=== PATIENT | male | born 1985 | race African-American/Black ===

== ENCOUNTER 2018-06-02 11:23 | Emergency (ER) | payer SELFPAY ==
[~2018-06-02] VITALS: Ht 162.6 cm; Wt 95.3 kg
[2018-06-02] MEDS ORDERED: PANTOPRAZOLE 40 MG 10ML VIAL IV STA (11:50)
[2018-06-02] MEDS ORDERED: SODIUM CHLORIDE 0.9% 1000ML 1,000 ML IV SCH (12:00)
[2018-06-02] MEDS ORDERED: FAMOTIDINE 20 MG/2 ML VIAL IV ONE (12:30)
[2018-06-02] MEDS ORDERED: DONNATAL/LIDOCAINE/MAALOX 30 ML SUSP PO SCH (15:00)
== END 2018-06-02 13:28 | disposition home or self-care (01) ==
LOC: FSED 11:23
DX: R10.13 Epigastric pain (principal); K29.00 Acute gastritis without bleeding
CPT/HCPCS: 36415; 80053; 80076; 81003; 83690; 85025; 99284

== ENCOUNTER 2019-01-27 10:26 | Emergency (ER) | payer SELFPAY ==
[~2019-01-27] VITALS: Ht 162.6 cm; Wt 83.9 kg
--- OUTSIDE RECORDS SUMMARY | 2019-01-27 10:29 | XMS REPORT | Clinical Summary ---
Author Author [facility] Organization [facility] Address Unknown Phone Unavailable Care Team Providers Care Special Procedure Tech Name Role Phone Jordan Dasilva MD PCP Allergies Comments Active Allergy Reactions Severity Noted Date sob Hydroxyzine 10/12/2017 Medications End Date Status Medication Sig Dispensed Refills Start Date Active traMADol (ULTRAM) 50 mg Take 1 tablet 30 tablet 0 tabletIndications: Side by mouth 9 pain every 6 hours as needed for Pain. Active dexlansoprazole Take 1 90 capsule 0 (DEXILANT) 30 mg delayed capsule by 9 release mouth daily. 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 complication status, Osteoarthritis of thoracic spine, unspecified spinal osteoarthritis complication status Active baclofen (LIORESAL) 10 mg Take 1 tablet 60 tablet 1 tabletIndications: Spasm by mouth 2 9 of muscle times daily. Active hyoscyamine sulfate Take 1 tablet 60 tablet 0 (LEVSIN) 0.125 mg by mouth 9 tabletIndications: every 6 hours Chronic abdominal pain as needed for Cramping. 10/12/2018 Discontinued esomeprazole (NEXIUM) 20 Take 1 30 capsule 1 mg delayed release capsule by 7 capsuleIndications: mouth every Gastritis without morning bleeding, unspecified (before chronicity, unspecified breakfast). gastritis type 12/23/2018 Discontinued dicyclomine (BENTYL) 10 Take 1 30 capsule 1 mg capsuleIndications: capsule by 7 Gastritis without mouth 3 times bleeding, unspecified daily as chronicity, unspecified needed for gastritis type Pain. 12/23/2018 Discontinued baclofen (LIORESAL) 10 mg Take 1 tablet 60 tablet 1 tabletIndications: Spasm by mouth 2 8 of muscle times daily. 11/28/2018 Discontinued amitriptyline (ELAVIL) 25 Take 1 tablet 90 tablet 0 mg tabletIndications: by mouth at 8 Osteoarthritis of lumbar bedtime spine, unspecified spinal nightly. osteoarthritis complication status, Osteoarthritis of thoracic spine, unspecified spinal osteoarthritis complication status 11/28/2018 Discontinued omeprazole (PRILOSEC) 20 Take 1 30 capsule 0 mg delayed release capsule by 8 capsuleIndications: mouth daily. Epigastric pain 12/01/2018 ciprofloxacin HCl (CIPRO) Take 1 tablet 20 tablet 0 500 mg tabletIndications: by mouth 2 9 Side pain times daily for 10 days. 12/01/2018 magnesium hydroxide (MILK Take 15 mL by 360 mL 0 OF MAGNESIA) 400 mg/5 mL mouth daily 9 oral as needed for suspensionIndications: up to 10 days Constipation, unspecified for constipation type Constipation. 12/23/2018 Discontinued amitriptyline (ELAVIL) 25 Take 1 tablet 90 tablet 1 mg tabletIndications: by mouth at 9 Osteoarthritis of lumbar bedtime spine, unspecified spinal nightly. osteoarthritis complication status, Osteoarthritis of thoracic spine, unspecified spinal osteoarthritis complication status 12/23/2018 Discontinued dicyclomine (BENTYL) 10 Take 1 30 capsule 1 mg capsuleIndications: capsule by 9 Gastritis without mouth 3 times bleeding, unspecified daily as chronicity, unspecified needed for gastritis type Pain. 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 Decreased vision 07/21/2015 Dental infection 04/16/2015 Dental caries extending into pulp 04/16/2015 Alcohol abuse, in remission 01/28/2015 Depression 01/28/2015 ANDREW (generalized anxiety disorder) 01/28/2015 Body mass index (BMI) of 30.0-30.9 in adult 12/04/2014 Abdominal pain, epigastric 12/04/2014 Pancreatitis 06/12/2014 Overview: [facility] RUQ abdominal pain Encounters Care Team Description Date Type Specialty Jordan Dasilva MD Chronic abdominal pain (Primary Dx); Osteoarthritis of lumbar spine, unspecified spinal osteoarthritis complication status; Osteoarthritis of thoracic spine, unspecified spinal osteoarthritis complication status; Gastritis without bleeding, unspecified chronicity, unspecified gastritis type; Spasm of muscle 12/23/2018 Office Visit Family Practice 12/23/2018 Travel Jordan Dasilva MD Chronic abdominal pain (Primary Dx); Osteoarthritis of lumbar spine, unspecified spinal osteoarthritis complication status; Osteoarthritis of thoracic spine, unspecified spinal osteoarthritis complication status 11/28/2018 Office Visit Family Practice Koki Renteria MD Telufusi, Abimbola R PA Side pain (Primary Dx); Constipation, unspecified constipation type 11/21/2018 Same Day Family Practice 11/21/2018 Travel 11/20/2018 Travel Jelly Soto RN 11/20/2018 Nurse Triage Nova Murphy MD Patient left without being seen (Primary Dx) 10/31/2018 Same Day Family Practice 10/31/2018 Travel Yancy Saul MD RUQ abdominal pain (Primary Dx); Epigastric pain 10/12/2018 Emergency Emergency Medicine after 01/26/2018 Immunizations Name Dates Previously Given Next Due Influenza Vaccine 09/07/2015, 12/04/2014 Influenza Vaccine, 11/21/2018 (Deferred: Patient Refused) Seasonal, Injectable Family History Medical History Relation Name Comments Arthritis Maternal Grandmother Heart Maternal Grandmother Hypertension Maternal Grandmother Relation Name Status Comments Daughter Alive x2 Father Alive Maternal Grandfather Maternal Grandmother Alive Mother Alive Paternal Grandfather Alive Paternal Grandmother Alive Son Alive x4 Social History Date Tobacco Use Types Packs/Day Years Used Quit: 12/29/2014 Former Smoker Cigarettes 0.3 15 Smokeless Tobacco: Former User Tobacco Cessation: Counseling Given: Yes Alcohol Use Drinks/Week oz/Week Comments No quit drinking Sex Assigned at Date Recorded Not on file Industry Job Start Date Occupation Not on file Not on file Not on file Travel End Travel History Travel Start No recent travel history available. Last Filed Vital Signs Time Taken Vital Sign Reading 12/23/2018 1:43 PM [employer] Blood Pressure 126/91 12/23/2018 1:43 PM [employer] Pulse 65 12/23/2018 1:43 PM [employer] Temperature 36.8 C (98.3 F) 12/23/2018 1:43 PM [employer] Respiratory Rate 18 11/21/2018 2:25 PM [employer] Oxygen Saturation 99% - Inhaled Oxygen - Concentration 12/23/2018 1:43 PM [employer] Weight 83.9 kg (185 lb) 12/23/2018 1:43 PM [employer] Height 162.6 cm (5' 4") 12/23/2018 1:43 PM [employer] Body Mass Index 31.76 Plan of Treatment Care Team Description Date Type Specialty ShalomPilo, OD [address] [place] [address] [phone] exam 03/05/2019 Office Visit Ophthalmology Jordan Dasilva MD [place], [place] [id number] pt needs meds 03/19/2019 Office Visit Family Practice Procedures Comments Procedure Name Priority Date/Time Associated Diagnosis NEEDLE EMG, 2 EXTREMITIES Routine 11/28/2018 Osteoarthritis of lumbar 2:39 PM [employer] spine, unspecified spinal osteoarthritis complication status N EMG; THORACIC MUSCLES Routine 11/28/2018 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 [employer] thoracic spine, unspecified spinal osteoarthritis complication status POC URINE DIPSTICK, Routine 11/21/2018 Side pain WITHOUT MICRO U/S ABDOMEN LIMITED STAT 10/12/2018 RUQ abdominal pain 8:36 PM [employer] BMP POC Routine 10/12/2018 9:19 AM [employer]OMER [employer] TRA[employer]ER HIV-1/HIV-2 ROUTINE STAT 10/12/2018 SCREENING 9:08 AM [employer]OMER [employer]ICE TRA[employer]ER UA CHEMISTRIES STAT 10/12/2018 9:08 AM [employer]ER [employer]ICE TRA[employer]ER LIPASE STAT 10/12/2018 9:08 AM C[employer]OMER SERVICE TRAINER LIVER PROFILE STAT 10/12/2018 9:08 AM C[employer]OMER [employer]ICE TRA[employer]ER CBC/DIFF STAT 10/12/2018 9:08 AM CUSTOMER SERVICE TRAINER after 01/26/2018 Results * POC URINE DIPSTICK, WITHOUT MICRO (11/21/2018) Color POC dark yellow - - - Clarity POC clr - - - Spec Nikolski <=1.005 1.005 - 1.030 POC pH POC 6.0 5.0 - 7.0 Protein POC Neg Neg - Neg Glucose POC Neg Neg - Neg Ketone POC Neg Neg - Neg Bilirubin POC Neg Neg - Neg Nitrate POC Neg Neg - Neg Urobilinogen 0.2 0.2 - 1.0 EU/dL POC Leukocyte POC Neg Neg - Neg Blood POC 1+ Neg - Neg Specimen Urine * U/S ABDOMEN LIMITED (10/12/2018 8:36 PM CUSTOMER SERVICE TRAINER) Impressions Performed At IMPRESSION: [facility] Normal right upper quadrant ultrasound. If the report is "FINALIZED" it indicates that the attending/staff radiologist has reviewed the images and agrees with the resident's interpretation. Dictated By: Isma Sosa MD, 10/12/2018 8:58 PM I have reviewed the study and agree with the findings in this report. Signed By: Birgit Lewis MD, 10/13/2018 12:31 AM Narrative Performed At EXAM: Right Upper Quadrant Ultrasound [facility] INDICATION: ruq abd pain COMPARISON: MRI abdomen 07/23/2015, CT abdomen and pelvis 01/15/2015 TECHNIQUE: Transverse and longitudinal images of the right upper abdomen were obtained. FINDINGS: Liver: Size: 14.3 cm in the right midclavicular line, normal Appearance: Normal echogenicity, smooth contour Mass: No focal masses Gallbladder: Stones/Sludge: None Wall: 0.2 cm Appearance: No pericholecystic fluid or hydrops. Sonographic Vasquez's Sign: Negative Bile Ducts: Intrahepatic Ducts: No dilatation Extrahepatic Ducts: Common bile duct measures 0.6 cm, no dilatation Pancreas: Incompletely visualized due to overlying bowel gas, but no abnormality identified involving the visualized portions of the pancreas. Right Kidney: Size: 11.5 cm Echogenicity: Normal Parenchymal thickness: Normal Collecting system: No hydronephrosis Stones: None Cyst/Mass: None Vessels: Aorta: Visualized portions are normal Inferior Vena Cava: Visualized portions are normal Main Portal Vein: 1.1 cm, normal size with hepatopetal flow. Free Fluid: No ascites or pleural effusion Procedure Note Interface, Rad/Mammog In - 10/13/2018 12:36 AM C[employer]OMER [employer]ICE TRAINER EXAM: Right Upper Quadrant Ultrasound INDICATION: ruq abd pain COMPARISON: MRI abdomen 07/23/2015, CT abdomen and pelvis 01/15/2015 TECHNIQUE: Transverse and longitudinal images of the right upper abdomen were obtained. FINDINGS: Liver: Size: 14.3 cm in the right midclavicular line, normal Appearance: Normal echogenicity, smooth contour Mass: No focal masses Gallbladder: Stones/Sludge: None Wall: 0.2 cm Appearance: No pericholecystic fluid or hydrops. Sonographic Vasquez's Sign: Negative Bile Ducts: Intrahepatic Ducts: No dilatation Extrahepatic Ducts: Common bile duct measures 0.6 cm, no dilatation Pancreas: Incompletely visualized due to overlying bowel gas, but no abnormality identified involving the visualized portions of the pancreas. Right Kidney: Size: 11.5 cm Echogenicity: Normal Parenchymal thickness: Normal Collecting system: No hydronephrosis Stones: None Cyst/Mass: None Vessels: Aorta: Visualized portions are normal Inferior Vena Cava: Visualized portions are normal Main Portal Vein: 1.1 cm, normal size with hepatopetal flow. Free Fluid: No ascites or pleural effusion IMPRESSION IMPRESSION: Normal right upper quadrant ultrasound. If the report is "FINALIZED" it indicates that the attending/staff radiologist has reviewed the images and agrees with the resident's interpretation. Dictated By: Isma Sosa MD, 10/12/2018 8:58 PM I have reviewed the study and agree with the findings in this report. Signed By: Birgit Lewis MD, 10/13/2018 12:31 AM Performing Organization Address City/State/Zipcode Phone Number SMS * BMP POC (10/12/2018 9:19 AM CUSTOMER SERVICE TRAINER) CO2 POC 26 21 - 32 mmol/L [facility] Chloride POC 103 98 - 107 mmol/L [facility] Potassium POC 3.8 3.50 - 5.10 mmol/L [facility] 1 Sodium POC 141 136 - 145 mmol/L [facility] 1 Glucose POC 117 (H) 74 - 106 mg/dL [facility] Urea Nitrogen 14 7 - 18 mg/dL [facility] POC 1 Creatinine POC 0.8 0.6 - 1.3 mg/dL [facility] 1 Calcium Ionized 1.22 1.15 - 1.29 mmol/L [facility] POC 1 Hemoglobin POC 15.6 14.0 - 18.0 g/dL [facility] 1 Hematocrit POC 46.0 40.0 - 54.0 % [facility] 1 GFR, Estimated >60 mL/min/1.73 m2 [facility] 1 GFR, Estim, >60 mL/min/1.73 m2 [facility] Afr-Am 1 Performing Organization Address [facility] Phone Number MISYS [facility] * HIV-1/HIV-2 ROUTINE SCREENING (10/12/2018 9:08 AM CUSTOMER SERVICE TRAINER) HIV-1/HIV-2 Negative NEG BT OUTPATIENT DRAW 2 Performing Organization Address [facility] Phone Number MISYS BT OUTPATIENT DRAW 2 * UA CHEMISTRIES (10/12/2018 9:08 AM CUSTOMER SERVICE TRAINER) Color Yellow [facility] 3 Clarity Clear [facility] 3 Spec Nikolski 1.026 1.001 - 1.035 [facility] 3 pH 7.0 5 - 8 [facility] 3 Protein 1+ (A) NEG [facility] 3 Glucose Negative NEG [facility] 3 Ketone Negative NEG [facility] 3 Bilirubin Negative NEG [facility] 3 Nitrate Negative NEG [facility] 3 Urobilinogen <1.0 0.2 - 1.0 EU/dL [facility] 3 Leukocyte Negative NEG [facility] 3 Blood Negative NEG [facility] 3 RBC 2 0 - 4 /HPF [facility] 3 WBC 1 0 - 5 /HPF [facility] 3 Epithelial Cell 1 /HPF [facility] 3 Specimen Urine Performing Organization Address [facility] Phone Number MISYS [facility] 3 * LIVER PROFILE (10/12/2018 9:08 AM CUSTOMER SERVICE TRAINER) T Protein 6.9 6.0 - 8.3 g/dL [facility] 1 Albumin 4.4 4.2 - 5.5 g/dL [facility] 1 T Bilirubin 1.1 0.2 - 1.2 mg/dL [facility] 1 Alk Phos 59 34 - 104 U/L [facility] 1 AST 12 (L) 13 - 39 U/L [facility] 1 ALT 12 7 - 52 U/L [facility] 1 D Bilirubin 0.2 0.0 - 0.2 mg/dL [facility] 1 Specimen Blood Performing Organization Address [facility]/State/Zipcode Phone Number MISYS [facility] 1 * LIPASE (10/12/2018 9:08 AM CUSTOMER SERVICE TRAINER) Lipase 11 11 - 82 U/L [facility] 1 Specimen Blood Performing Organization Address City/State/Zipcode Phone Number MISYS [facility] 1 * CBC/DIFF (10/12/2018 9:08 AM CUSTOMER SERVICE TRAINER) WBC 4.4 (L) 4.5 - 12.0 K/uL [facility] 2 RBC 5.25 4.60 - 6.20 M/uL [facility] 2 Hemoglobin 13.6 (L) 14.0 - 18.0 g/dL [facility] 2 Hematocrit 42.1 40.0 - 54.0 % [facility] 2 MCV 80 (L) 82 - 92 fL [facility] 2 MCH 25.9 (L) 27.0 - 31.0 pg [facility] 2 MCHC 32.3 32.0 - 36.0 g/dL [facility] 2 RDW 39.2 35.1 - 43.9 fL [facility] 2 Platelet 207 150 - 400 K/uL [facility] 2 Mean Platelet 12.1 9.4 - 12.4 fL [facility] Volume 2 Percent NRBC 0.0 [facility] 2 Absolute NRBC 0.00 [facility] 2 Neutrophil 58.3 34.0 - 67.9 % [facility] 2 Lymphocyte 35.1 21.8 - 50.0 % [facility] 2 Monocyte 5.2 (L) 5.3 - 12.0 % [facility] 2 Eosinophil 0.9 0.8 - 5.0 % [facility] 2 Basophil 0.5 0.2 - 1.2 % [facility] 2 Pct Immat Gran 0.0 0.0 - 0.5 BT [facility] 2 Neutrophil, Abs 2.57 1.78 - 5.36 K/uL [facility] 2 Lymphocyte, Abs 1.55 1.32 - 3.57 K/uL BT [facility] 2 Monocyte, Abs 0.23 (L) 0.30 - 0.82 K/uL BT [facility] 2 Eosinophil, Abs 0.04 0.04 - 0.54 K/uL [facility] 2 Basophil, Abs 0.02 0.01 - 0.08 K/uL BT [facility] 2 Absol Immat 0.00 0.00 - 0.03 K/uL [facility] Gran 2 Specimen Blood Performing Organization Address City/State/Zipcode Phone Number JFYS [facility] 2 after 01/26/2018 Insurance Type Payer Benefit Subscriber ID Effective Phone Address Plan / Dates Group [employer] PLAN H[employer] PLAN xxxxxx 2018- [phone] [id number] [place] [address] [place] [employer] [employer] 2018 [address] [facility] - [id number] PLANNING [address] [place] [phone]
--- OUTSIDE RECORDS SUMMARY | 2019-01-27 10:29 | XMS REPORT ---
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 Allergies, Adverse Reactions, Alerts Allergy Name Allergy Type Status Severity Reaction(s) Onset Date Inactive Date Treating Clinician Comments No Known Allergies DA Active U 2019-01-07 00:00:00 No Known Allergies DA Active U 2018-09-07 00:00:00 No Known Allergies DA Active U 2018-07-11 00:00:00 Medications This patient has no known medications. Encounters Start Date/Time End Date/Time Encounter Type Admission Type Attending Clinicians Care Facility Care Department Encounter ID 2019-03-19 00:00:00 2019-03-19 00:00:00 Outpatient [facility] [id number] 2019-03-05 00:00:00 2019-03-05 00:00:00 Outpatient [facility] [id number] 2019-01-23 00:00:00 2019-01-23 00:00:00 Outpatient [facility] [id number] 2019-01-17 00:00:00 2019-01-17 00:00:00 Outpatient [facility] [id number] 2018-12-23 13:42:53 2018-12-23 13:42:53 Outpatient [facility] [id number] 2018-11-28 13:47:56 2018-11-28 13:47:56 Outpatient [facility] [id number] 2018-11-21 14:22:50 2018-11-21 14:22:50 Outpatient [facility] [id number] 2018-10-31 14:07:18 2018-10-31 14:07:18 Outpatient [facility] [id number] 2018-10-12 19:58:57 2018-10-12 19:58:57 Emergency [facility] [id number] 2018-10-12 15:43:59 2018-10-12 15:43:59 Emergency [facility] [id number] 2018-01-23 11:08:58 2018-01-23 11:08:58 Outpatient [facility] [id number] 2017-11-29 00:00:00 2017-11-29 00:00:00 Outpatient [facility] [id number] 2017-10-23 00:00:00 2017-10-23 00:00:00 Outpatient [facility] [id number] 2017-10-12 16:04:26 2017-10-12 16:04:26 Outpatient [facility] [id number] 2017-10-12 10:13:00 2017-10-12 10:13:00 Outpatient [facility] [id number] 2017-05-24 13:18:49 2017-05-24 13:18:49 Outpatient [facility] [id number] Results Test Description Test Time Test Comments Text Results Atomic Results Result Comments COMPREHENSIVE METABOLIC PANEL 2019-01-07 16:46:00 SODIUM (test code=NA) 140 mmol/L 134-147 POTASSIUM (test code=K) 3.9 mmol/L 3.4-5.0 CHLORIDE (test code=CL) 104 mmol/L 100-108 CARBON DIOXIDE (test code=CO2) 28 mmol/L 21-32 ANION GAP (test code=GAP) 8.0 GAP calc 4.0-15.0 GLUCOSE (test code=GLU) 84 MG/DL 70-110 BLOOD UREA NITROGEN (test code=BUN) 16 MG/DL 7-18 GLOMERULAR FILTRATION RATE (test code=GFR) >=60 max estimate estGFR >60 CREATININE (test code=CREAT) 0.8 MG/DL 0.8-1.3 TOTAL PROTEIN (test code=PROT) 7.3 G/DL 6.4-8.2 ALBUMIN (test code=ALB) 3.8 G/DL 3.4-5.0 GLOBULIN (test code=GLOB) 3.5 GM/dL ALBUMIN/GLOBULIN RATIO (test code=A/G) 1.1 RATIO 1.2-2.2 CALCIUM (test code=CA) 9.3 MG/DL 8.5-10.1 BILIRUBIN TOTAL (test code=BILT) 0.80 MG/DL 0.2-1.2 SGOT/AST (test code=AST) 16 Unit/L 15-37 SGPT/ALT (test code=ALT) 16 Unit/L 12-78 ALKALINE PHOSPHATASE TOTAL (test code=ALKP) 69 Unit/L 50-136 [id number] 16:46:00* Test Item Value Reference Range Comments LIPASE (test code=LIP) 156 Unit/L 114-286 COMPREHENSIVE METABOLIC [id number] 16:41:00* Test Item Value Reference Range Comments SODIUM (test code=NA) 140 mmol/L 134-147 POTASSIUM (test code=K) 3.9 mmol/L 3.4-5.0 CHLORIDE (test code=CL) 104 mmol/L 100-108 CARBON DIOXIDE (test code=CO2) 28 mmol/L 21-32 ANION GAP (test code=GAP) 8.0 GAP calc 4.0-15.0 GLUCOSE (test code=GLU) 84 MG/DL 70-110 BLOOD UREA NITROGEN (test code=BUN) 16 MG/DL 7-18 GLOMERULAR FILTRATION RATE (test code=GFR) estGFR >60 CREATININE (test code=CREAT) MG/DL 0.8-1.3 TOTAL PROTEIN (test code=PROT) G/DL 6.4-8.2 ALBUMIN (test code=ALB) G/DL 3.4-5.0 GLOBULIN (test code=GLOB) GM/dL ALBUMIN/GLOBULIN RATIO (test code=A/G) RATIO 1.2-2.2 CALCIUM (test code=CA) 9.3 MG/DL 8.5-10.1 BILIRUBIN TOTAL (test code=BILT) MG/DL 0.2-1.2 SGOT/AST (test code=AST) Unit/L 15-37 SGPT/ALT (test code=ALT) Unit/L 12-78 ALKALINE PHOSPHATASE TOTAL (test code=ALKP) Unit/L 50-136 [id number] 16:41:00* Test Item Value Reference Range Comments LIPASE (test code=LIP) 156 Unit/L 114-286 CBC W/AUTO [id number] 16:31:00* Test Item Value Reference Range Comments WHITE BLOOD CELL (test code=WBC) 6.0 K/mm3 3.5-11.0 RED BLOOD CELL (test code=RBC) 5.07 M/mm3 4.70-6.10 HEMOGLOBIN (test code=HGB) 13.4 G/DL 12.3-15.9 HEMATOCRIT (test code=HCT) 40.8 % 35.8-46.7 MEAN CELL VOLUME (test code=MCV) 80.5 Fl 86.3-98.9 MEAN CELL HGB (test code=MCH) 26.4 pg 28.9-34.4 MEAN CELL HGB CONCETRATION (test code=MCHC) 32.8 G/DL 32.1-34.5 RED CELL DISTRIBUTION WIDTH (test code=RDW) 13.8 SD 11.5-14.5 PLATELET COUNT (test code=PLT) 206.0 K/mm3 150-450 MEAN PLATELET VOLUME (test code=MPV) 10.90 fL 7.0-9.6 NEUTROPHIL % (test code=NT%) 62.5 % 40-76 LYMPHOCYTE % (test code=LY%) 31.2 % 20.5-51.1 MONOCYTE % (test code=MO%) 5.3 % 1.7-9.3 EOSINOPHIL % (test code=EO%) 0.8 % 0.0-6.0 BASOPHIL % (test code=BA%) 0.2 % 0.0-2.0 NEUTROPHIL # (test code=NT#) 3.77 K/mm3 1.8-7.6 LYMPHOCYTE # (test code=LY#) 1.9 K/mm3 0.6-3.0 MONOCYTE # (test code=MO#) 0.3 K/mm3 0.2-1.5 EOSINOPHIL # (test code=EO#) 0.1 K/mm3 0.0-0.4 BASOPHIL # (test code=BA#) 0.0 K/mm3 0.0-0.2 MANUAL DIFF REQUIRED (test code=MDIFF) NO DIFF/SCN CRITERIA URINALYSIS [id number] 13:47:00* Test Item Value Reference Range Comments UA COLOR (test code=COLU) YELLOW discript YEL/STRAW UA APPEARANCE (test code=APPU) CLEAR discript CLEAR UA GLUCOSE DIPSTICK (test code=DGLUU) NEGATIVE mg/dL NEG UA BILIRUBIN DIPSTICK (test code=BILU) NEGATIVE mg/dL NEG UA KETONE DIPSTICK (test code=KETU) NEGATIVE mg/dL NEG UA SPECIFIC GRAVITY (test code=SGU) 1.015 SG 1.005-1.030 UA BLOOD DIPSTICK (test code=KELLY) TRACE mg/DL NEG UA PH DIPSTICK (test code=VINNIE) 6.0 pH UNITS 5.0-7.0 UA PROTEIN DIPSTICK (test code=PROU) NEGATIVE mg/dL NEG UA UROBILINIOGEN DIPSTICK (test code=URO) 0.2 mg/dL <2.0 UA NITRITE DIPSTICK (test code=JONELLE) NEGATIVE SCREEN NEG UA LEUKOCYTE ESTERASE DIPSTICK (test code=LEUU) NEGATIVE Leuk/mcL NEGATIVE UA WBC (test code=WBCU) 0-1 #WBC/HPF 0-3 UA RBC (test code=RBCU) 1-3 #RBC/HPF 0-3 UA SQUAMOUS CELLS (test code=SQU) 1+ /HPF NONE UA MUCUS (test code=MUCU) TRACE /LPF NONE SEEN DRUGS OF ABUSE SCREEN [id number] 13:47:00* Test Item Value Reference Range Comments URN COCAINE (test code=COCAURN) NEGATIVE SCcutoff <300 NG/ML URN CANNABINOIDS (test code=CANNABURN) NEGATIVE SCcutoff <50 NG/ML URN AMPHETAMINE (test code=AMPHETURN) NEGATIVE SCcutoff <1000 NG/ML URN BARBITURATE (test code=BARBITURN) NEGATIVE SCcutoff <200 NG/ML URN BENZODIAZEPINE (test code=BENZOURN) NEGATIVE SCcutoff <200 NG/ML URN OPIATES (test code=OPIATURN) NEGATIVE SCcutoff <2000 NG/ML URN PHENCYCLIDINE (PCP) (test code=PHENCURN) NEGATIVE SCcutoff <25 NG/ML URN METHADONE (test code=METHAURN) NEGATIVE SCcutoff <300 NG/ML - XR CHEST 1 [id number] 13:36:00 Name: BRAD RODRIGUEZ [place] : 1985 Age/S: 33 / M [id number] Unit #: [id number] Loc: [place] [address] Phys: Everardo Thurman MD Acct: [id number] Dis Date: Status: REG ER PHONE #: [phone] Exam Date: 12/20/2018 1245 FAX #: Reason: chest pain EXAMS: CPT: [id number] XR CHEST 1 V 21540 Fluoro Time: DAP (Gy m2): Air Kerma (mGy): EXAM: - XR CHEST 1 V LOCATION: C3 HISTORY: chest pain COMPARISON: 07/11/2018 FINDINGS: Single view of the chest. No indwelling lines or tubes. No pneumothorax. The lungs are clear. No pleural effusions are present. The mediastinal contours are unremarkable. No acute osseous findings are present. IMPRESSION: No acute cardiopulmonary abnormality. at 1336 Reported and signed by: BAKARI GILLILAND M.D. CC: Everardo Thurman MD PAGE 1 Signed Report Name: BRAD RODRIGUEZ : 1985 Age/S: 33 / M [id number] Unit #: [id number] Loc: [place] [address] Phys: Everardo Thurman MD Acct: [id number] Dis Date: Status: REG ER PHONE #: [phone] Exam Date: 12/20/2018 1245 FAX #: Reason: chest pain EXAMS: CPT: [id number] XR CHEST 1 V 32690 Fluoro Time: DAP (Gy m2): Air Kerma (mGy): <Continued> Technologist: Sheryl Peraza, RT(R) Trnscb Date/Time: 12/20/2018 (4248) [email or web address] Orig Print D/T: S: 12/20/2018 (9476) PAGE 2 Signed Report TROPONIN I [id number] 13:35:00* Test Item Value Reference Range Comments TROPONIN I RAPID (test code=TROPIRAP) 0.00 ng/mL 0.00-0.08 - The use of serial sampling and testing protocol is a recommended practice- An elevated troponin level alone is often not sufficient for diagnosis of myocardial infarction. CHEMISTRY 8 [id number] 13:35:00* Test Item Value Reference Range Comments ISTAT-SODIUM (test code=NAP) mmol/L 135-146 ISTAT-POTASSIUM (test code=KP) mmol/L 3.5-4.9 ISTAT-CHLORIDE (test code=CLP) mmol/L 98-109 ISTAT-CARBON DIOXIDE (test code=ISTAT-CO2) mmol/L 24-29 ISTAT CALCIUM IONIZED (test code=ISTAT-VAISHALI) mmol/L 1.12-1.32 ISTAT-GLUCOSE (test code=GLUP) mg/dL 70-105 ISTAT-BUN (test code=BUNP) mg/dL 8-26 BEDSIDE CREATININE (test code=CREATBED) mg/dL 0.6-1.3 GLOMERULAR FILTRATION RATE POC (test code=GFRBED) 124 70-162 CHEMISTRY 8 [id number] 13:35:00* Test Item Value Reference Range Comments ISTAT-SODIUM (test code=NAP) 141 mmol/L 135-146 ISTAT-POTASSIUM (test code=KP) 3.6 mmol/L 3.5-4.9 ISTAT-CHLORIDE (test code=CLP) 99 mmol/L 98-109 ISTAT-CARBON DIOXIDE (test code=ISTAT-CO2) 29 mmol/L 24-29 ISTAT CALCIUM IONIZED (test code=ISTAT-VAISHALI) 1.24 mmol/L 1.12-1.32 ISTAT-GLUCOSE (test code=GLUP) 73 mg/dL 70-105 ISTAT-BUN (test code=BUNP) 10 mg/dL 8-26 BEDSIDE CREATININE (test code=CREATBED) 0.9 mg/dL 0.6-1.3 GLOMERULAR FILTRATION RATE POC (test code=GFRBED) 124 70-162 URINALYSIS [id number] 13:34:00* Test Item Value Reference Range Comments UA COLOR (test code=COLU) YELLOW discript YEL/STRAW UA APPEARANCE (test code=APPU) CLEAR discript CLEAR UA GLUCOSE DIPSTICK (test code=DGLUU) NEGATIVE mg/dL NEG UA BILIRUBIN DIPSTICK (test code=BILU) NEGATIVE mg/dL NEG UA KETONE DIPSTICK (test code=KETU) NEGATIVE mg/dL NEG UA SPECIFIC GRAVITY (test code=SGU) 1.015 SG 1.005-1.030 UA BLOOD DIPSTICK (test code=KELLY) TRACE mg/DL NEG UA PH DIPSTICK (test code=VINNIE) 6.0 pH UNITS 5.0-7.0 UA PROTEIN DIPSTICK (test code=PROU) NEGATIVE mg/dL NEG UA UROBILINIOGEN DIPSTICK (test code=URO) 0.2 mg/dL <2.0 UA NITRITE DIPSTICK (test code=JONELLE) NEGATIVE SCREEN NEG UA LEUKOCYTE ESTERASE DIPSTICK (test code=LEUU) NEGATIVE Leuk/mcL NEGATIVE DRUGS OF ABUSE SCREEN [id number] 13:34:00* Test Item Value Reference Range Comments URN COCAINE (test code=COCAURN) NEGATIVE SCcutoff <300 NG/ML URN CANNABINOIDS (test code=CANNABURN) NEGATIVE SCcutoff <50 NG/ML URN AMPHETAMINE (test code=AMPHETURN) NEGATIVE SCcutoff <1000 NG/ML URN BARBITURATE (test code=BARBITURN) NEGATIVE SCcutoff <200 NG/ML URN BENZODIAZEPINE (test code=BENZOURN) NEGATIVE SCcutoff <200 NG/ML URN OPIATES (test code=OPIATURN) NEGATIVE SCcutoff <2000 NG/ML URN PHENCYCLIDINE (PCP) (test code=PHENCURN) NEGATIVE SCcutoff <25 NG/ML URN METHADONE (test code=METHAURN) NEGATIVE SCcutoff <300 NG/ML URINALYSIS [id number] 13:28:00* Test Item Value Reference Range Comments UA COLOR (test code=COLU) YELLOW discript YEL/STRAW UA APPEARANCE (test code=APPU) CLEAR discript CLEAR UA GLUCOSE DIPSTICK (test code=DGLUU) NEGATIVE mg/dL NEG UA BILIRUBIN DIPSTICK (test code=BILU) NEGATIVE mg/dL NEG UA KETONE DIPSTICK (test code=KETU) NEGATIVE mg/dL NEG UA SPECIFIC GRAVITY (test code=SGU) 1.015 SG 1.005-1.030 UA BLOOD DIPSTICK (test code=KELLY) TRACE mg/DL NEG UA PH DIPSTICK (test code=VINNIE) 6.0 pH UNITS 5.0-7.0 UA PROTEIN DIPSTICK (test code=PROU) NEGATIVE mg/dL NEG UA UROBILINIOGEN DIPSTICK (test code=URO) 0.2 mg/dL <2.0 UA NITRITE DIPSTICK (test code=JONELLE) NEGATIVE SCREEN NEG UA LEUKOCYTE ESTERASE DIPSTICK (test code=LEUU) NEGATIVE Leuk/mcL NEGATIVE DRUGS OF ABUSE SCREEN [id number] 13:28:00* Test Item Value Reference Range Comments URN COCAINE (test code=COCAURN) SCcutoff <300 NG/ML URN CANNABINOIDS (test code=CANNABURN) SCcutoff <50 NG/ML URN AMPHETAMINE (test code=AMPHETURN) SCcutoff <1000 NG/ML URN BARBITURATE (test code=BARBITURN) SCcutoff <200 NG/ML URN BENZODIAZEPINE (test code=BENZOURN) SCcutoff <200 NG/ML URN OPIATES (test code=OPIATURN) SCcutoff <2000 NG/ML URN PHENCYCLIDINE (PCP) (test code=PHENCURN) SCcutoff <25 NG/ML URN METHADONE (test code=METHAURN) SCcutoff <300 NG/ML [id number] 13:28:00* Test Item Value Reference Range Comments LIPASE (test code=LIP) 162 Unit/L 114-286 CPK-MB [id number] 13:28:00* Test Item Value Reference Range Comments CREATINE KINASE (CK) (test code=CK) 145 Unit/L 26-192 CKMB (test code=CKMBT) 1.0 NG/ML 0.0-4.9 RELATIVE % INDEX (test code=REL%) 0.6 % 0.0-2.5 CBC W/O [id number] 13:13:00* Test Item Value Reference Range Comments WHITE BLOOD CELL (test code=WBC) 6.9 K/mm3 3.5-11.0 RED BLOOD CELL (test code=RBC) 5.46 M/mm3 4.70-6.10 HEMOGLOBIN (test code=HGB) 14.9 G/DL 12.3-15.9 HEMATOCRIT (test code=HCT) 44.6 % 35.8-46.7 MEAN CELL VOLUME (test code=MCV) 81.7 Fl 86.3-98.9 MEAN CELL HGB (test code=MCH) 27.3 pg 28.9-34.4 MEAN CELL HGB CONCETRATION (test code=MCHC) 33.4 G/DL 32.1-34.5 RED CELL DISTRIBUTION WIDTH (test code=RDW) 14.1 SD 11.5-14.5 PLATELET COUNT (test code=PLT) 212.0 K/mm3 150-450 MEAN PLATELET VOLUME (test code=MPV) 11.30 fL 7.0-9.6
[2019-01-27] MEDS ORDERED: ONDANSETRON HCL INJ 2MG/ML 2ML 2 MG/ML VIAL IV STA (11:17)
[2019-01-27] MEDS ORDERED: KETOROLAC TROMETHAMINE 30 MG/ML VIAL IV STA (11:17)
--- NOTE | 2019-01-27 12:30 | NUR ---
PT RESTING, VITAL SIGNS STABLE, PT AWARE OF POC
[2019-01-27 12:48] VITALS: BP 127/82
[2019-01-27] MEDS ORDERED: IOPAMIDOL 370 MG/ML 50ML INFUS..BTL INJ ONE (14:15)
--- NOTE | 2019-01-27 14:26 | Diagnostic Imaging Report ---
EXAM: CT ABDOMEN AND PELVIS with IV CONTRAST DATE: 01/27/2019 Time stamp on Exam: 1:07 PM INDICATION: Epigastric pain COMPARISON: None TECHNIQUE: The abdomen and pelvis were scanned using a multidetector helical scanner. Coronal and sagittal reformations were obtained. Routine protocol performed. Low-dose protocol was utilized to maintain the lowest dose possible to the patient. IV Contrast: 97 cc of Isovue 370 Oral Contrast: Water Radiation Dose: Total DLP 598.42 mGy*cm Estimated effective dose: DLP x 0.015 x size factor FINDINGS: LOWER THORAX: No consolidations LIVER: No masses with mild fatty infiltration of the liver. BILIARY: The gallbladder is unremarkable. No ductal dilatation. SPLEEN: No masses PANCREAS: No masses ADRENALS: No nodules KIDNEYS: Symmetric perfusion. No enhancing masses. No hydronephrosis. GI TRACT: No distention, wall thickening or evidence of obstruction. The appendix is normal. VESSELS: There are 2 right renal arteries. PERITONEUM/RETROPERITONEUM: No free air or fluid LYMPH NODES: No lymphadenopathy REPRODUCTIVE ORGANS: Unremarkable BLADDER: Unremarkable SOFT TISSUES: Unremarkable BONES: No suspicious bone lesions. IMPRESSION: 1. No acute abnormality within the abdomen or pelvis. 2. Mild fatty infiltration of the liver. Signed by: Dr. Michael Adams DO on 01/27/2019 2:23 PM
[2019-01-27] MEDS ORDERED: MORPHINE SULFATE 2 MG/ML SYR 1ML IV STA (14:47)
== END 2019-01-27 15:05 | disposition home or self-care (01) ==
LOC: FSED 10:26
DX: R10.13 Epigastric pain (principal); R11.0 Nausea; K29.00 Acute gastritis without bleeding
CPT/HCPCS: 74177; 80048; 80076; 81003; 85025; 99284; J1885; J2270; J2405; Q9967

== ENCOUNTER 2019-08-07 07:10 | Emergency (ER) | payer SELFPAY ==
[~2019-08-07] VITALS: Ht 160 cm; Wt 91.6 kg
--- OUTSIDE RECORDS SUMMARY | 2019-08-07 07:14 | XMS REPORT | Clinical Summary ---
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 Active hyoscyamine sulfate Take 1 tablet 60 tablet 0 (LEVSIN) 0.125 mg by mouth 9 tabletIndications: every 6 hours Chronic abdominal pain as needed for Cramping. Active ibuprofen (MOTRIN) 400 mg Take 1 tablet 10 tablet 0 tabletIndications: Chest by mouth 9 pain in adult every 6 hours as needed for Pain. Active venlafaxine (EFFEXOR XR) Take 1 90 capsule 0 75 mg extended release capsule by 9 capsuleIndications: mouth daily. Chronic generalized pain, Mood disorder Active traMADol (ULTRAM) 50 mg Take 2 100 tablet 0 tabletIndications: Side tablets by 9 pain, Chronic generalized mouth every pain 12 hours as needed for Pain. 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 complication status, Osteoarthritis of thoracic spine, unspecified spinal osteoarthritis complication status, Chronic generalized pain, Side pain, Mood disorder Active dexlansoprazole Take 1 90 capsule 1 (DEXILANT) 30 mg delayed capsule by 9 release mouth daily. capsuleIndications: Chronic abdominal pain 10/12/2018 Discontinued esomeprazole (NEXIUM) 20 Take 1 [...] Side pain times daily for 10 days. 03/05/2019 Discontinued traMADol (ULTRAM) 50 mg Take 1 tablet 30 tablet 0 tabletIndications: Side by mouth 9 pain every 6 hours as needed for Pain. 12/01/2018 magnesium hydroxide (MILK Take 15 mL [...] thoracic spine, unspecified spinal osteoarthritis complication status 04/30/2019 Discontinued dexlansoprazole Take 1 90 capsule 0 (DEXILANT) 30 mg delayed capsule by 9 release mouth daily. capsuleIndications: Chronic abdominal pain 03/19/2019 Discontinued amitriptyline (ELAVIL) 25 Take 2 180 tablet [...] chronicity, unspecified needed for gastritis type Pain. 03/19/2019 Discontinued traMADol (ULTRAM) 50 mg Take 1 tablet 30 tablet 0 tabletIndications: Side by mouth 9 pain every 6 hours as needed for Pain. 05/03/2019 polyethylene glycol 3350 Mix 17 grams 14 Each 4 (GLYCOLAX) 17 gram oral into 4 to 8 9 powder packetIndications: ounces of Chronic abdominal pain, water, juice, Constipation, unspecified soda, tea or constipation type coffee and drink as directed. Take once daily.. 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 Decreased vision 07/21/2015 Dental infection 04/16/2015 Dental caries extending into pulp 04/16/2015 Alcohol abuse, in remission 01/28/2015 Depression 01/28/2015 ANDREW (generalized anxiety disorder) 01/28/2015 Body mass index (BMI) of 30.0-30.9 in adult 12/04/2014 Abdominal pain, epigastric 12/04/2014 Pancreatitis 06/12/2014 Overview: [facility] abdominal pain Encounters Care Team Description Date Type Specialty Joel Call MD Larson, Scott, MD Constipation, unspecified constipation type (Primary Dx); Chronic abdominal pain 04/30/2019 Office Visit Gastroenterology Jordan Dasilva MD Chronic generalized pain (Primary Dx); Side pain; Mood disorder; Osteoarthritis of lumbar spine, unspecified spinal osteoarthritis complication status; Osteoarthritis of thoracic spine, unspecified spinal osteoarthritis complication status 03/19/2019 Office Visit Family Practice Jordan Dasilva MD CleaverPilo T, OD Hyperopia with astigmatism, unspecified laterality (Primary Dx) 03/05/2019 Office Visit Ophthalmology Jordan Dasilva MD Side pain 03/05/2019 Refill Family Practice Dilip Novoa MD Chest pain in adult (Primary Dx) 02/17/2019 Emergency Emergency Medicine Jordan Dasilva MD Chronic abdominal pain (Primary Dx); Osteoarthritis of lumbar spine, unspecified spinal osteoarthritis complication status; Osteoarthritis of thoracic spine, unspecified spinal osteoarthritis complication status; Gastritis without bleeding, unspecified chronicity, unspecified gastritis type; Spasm of muscle 12/23/2018 Office Visit Family Practice Jordan Dasilva MD Chronic abdominal pain (Primary Dx); Osteoarthritis of lumbar spine, unspecified spinal osteoarthritis complication status; Osteoarthritis of thoracic spine, unspecified spinal osteoarthritis complication status 11/28/2018 Office Visit Family Practice Koki Renteria MD Telufusi, Abimbola R PA Side pain (Primary Dx); Constipation, unspecified constipation type 11/21/2018 Same Day Family Practice Jelly Soto RN 11/20/2018 Nurse Triage Nova Murphy MD Patient left without being seen (Primary Dx) 10/31/2018 Same Day Family Practice Yancy Saul MD RUQ abdominal pain (Primary Dx); Epigastric pain 10/12/2018 Emergency Emergency Medicine after 08/06/2018 Immunizations Name Administration Dates Next Due Influenza Vaccine 09/07/2015, 12/04/2014 Influenza [...] Former User Tobacco Cessation: Counseling Given: Yes Drinks/Week oz/Week Comments Alcohol Use quit drinking 2015; 3-4 drinks daily No Sex Assigned at Date Recorded Not on file Industry Job Start Date Occupation Not on file Not on file Not on file Travel End Travel History Travel Start No recent travel history available. Last Filed Vital Signs Reading Time Taken Comments Vital Sign 123/83 04/30/2019 7:57 AM CDT Blood Pressure 69 04/30/2019 7:57 AM CDT Pulse 36.9 C (98.4 F) 04/30/2019 7:57 AM CDT Temperature 19 04/30/2019 7:57 AM CDT Respiratory Rate 99% 02/17/2019 5:49 PM CDT Oxygen Saturation - - Inhaled Oxygen Concentration 90.1 kg (198 lb 11.2 oz) 04/30/2019 7:57 AM CDT Weight 162.6 cm (5' 4") 04/30/2019 7:57 AM CDT Height 34.11 04/30/2019 7:57 AM CDT Body Mass Index Plan of Treatment Care Team Description Date Type Specialty 4 month f/u 10/01/2019 Office Visit Gastroenterology Procedures Comments Procedure Name Priority Date/Time Associated Diagnosis XRAY CHEST 2 VIEWS STAT 02/17/2019 Chest pain in adult 5:11 PM CDT 12 LEAD EKG Routine 02/17/2019 12:51 PM CDT NEEDLE EMG, 2 EXTREMITIES Routine 11/28/2018 Osteoarthritis of lumbar 2:39 PM DRILLER HELPER spine, unspecified spinal osteoarthritis complication status N EMG; THORACIC MUSCLES Routine 11/28/2018 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 DRILLER HELPER thoracic spine, unspecified spinal osteoarthritis complication status POC URINE DIPSTICK, Routine 11/21/2018 Side pain WITHOUT MICRO U/S ABDOMEN LIMITED STAT 10/12/2018 RUQ abdominal pain 8:36 PM DRILLER HELPER BMP POC Routine 10/12/2018 9:19 AM DRILLER HELPER HIV-1/HIV-2 ROUTINE STAT 10/12/2018 SCREENING 9:08 AM DRILLER HELPER URINALYSIS STAT 10/12/2018 9:08 AM DRILLER HELPER LIPASE STAT 10/12/2018 9:08 AM DRILLER HELPER LIVER PROFILE STAT 10/12/2018 9:08 AM DRILLER HELPER CBC/DIFF STAT 10/12/2018 9:08 AM DRILLER HELPER after 08/06/2018 Results * XRAY CHEST 2 VIEWS (02/17/2019 5:11 PM CDT) Specimen Impressions Performed At [facility]: [facility] No acute intrathoracic abnormality. Signed By: Warren Denney MD, 02/17/2019 5:19 PM Narrative Performed At EXAM: CHEST X-RAY 2 VIEWS (PA AND LATERAL) [facility] DATE: 02/17/2019 5:13 PM CLINICAL INDICATION: chest pain COMPARISON: CXR 01/06/2015 TECHNIQUE: PA and lateral views of the chest were obtained. Lines/tubes:None. Lungs/Pleura:No consolidations or cavitations.No pleural effusions or pneumothorax. Heart and mediastinum:The cardiac silhouette is within normal limits in caliber. Bones:The thoracic skeleton is unremarkable. Soft tissues: Unremarkable. Procedure Note Interface, Rad/Mammog In - 02/17/2019 5:33 PM CDT EXAM: CHEST X-RAY 2 VIEWS (PA AND LATERAL) DATE: 02/17/2019 5:13 PM CLINICAL INDICATION: chest pain COMPARISON: CXR 01/06/2015 TECHNIQUE: PA and lateral views of the chest were obtained. Lines/tubes: None. Lungs/Pleura: No consolidations or cavitations. No pleural effusions or pneumothorax. Heart and mediastinum: The cardiac silhouette is within normal limits in caliber. Bones: The thoracic skeleton is unremarkable. Soft tissues: Unremarkable. IMPRESSION IMPRESSION: No acute intrathoracic abnormality. 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 Phone Number [facility] * POC URINE DIPSTICK, WITHOUT MICRO (11/21/2018) Color POC dark yellow - - - Clarity POC clr - - - Spec [place] <=1.005 1.005 - 1.030 POC pH POC [...] * U/S ABDOMEN LIMITED (10/12/2018 8:36 PM DRILLER HELPER) Specimen Impressions Performed At IMPRESSION: [facility] Normal right upper quadrant ultrasound. If the report is "FINALIZED" it indicates that the attending/staff radiologist has reviewed the images and agrees with the resident's interpretation. Dictated By: Isma Sosa MD, 10/12/2018 8:58 PM I have reviewed the study and agree with the findings in this report. Signed By: Birgit Lewis MD, 10/13/2018 12:31 AM Narrative Performed At EXAM: Right Upper Quadrant Ultrasound [facility] INDICATION: ruq abd pain COMPARISON: MRI abdomen [...] Interface, Rad/Mammog In - 10/13/2018 12:36 AM DRILLER HELPER EXAM: Right Upper Quadrant Ultrasound INDICATION: ruq [...] SMS * BMP POC (10/12/2018 9:19 AM DRILLER HELPER) CO2 POC 26 21 - 32 mmol/L [...] >60 mL/min/1.73 m2 BT MAIN-STATION Afr-Am 1 Specimen Performing Organization Address [facility] Phone Number [facility] BT MAIN-STATION 1 * HIV-1/HIV-2 ROUTINE SCREENING (10/12/2018 9:08 AM DRILLER HELPER) HIV-1/HIV-2 Negative NEG BT OUTPATIENT DRAW 2 Specimen Performing Organization Address [facility] Phone Number [facility]YS BT OUTPATIENT DRAW 2 * UA CHEMISTRIES (10/12/2018 9:08 AM DRILLER HELPER) Color Yellow BT MAIN-STATION 3 Clarity Clear BT MAIN-STATION 3 Specific 1.026 1.001 - 1.035 BT MAIN-STATION [place] 3 pH 7.0 5 - 8 BT MAIN-STATION 3 Protein 1+ (A) NEG BT MAIN-STATION 3 Glucose Negative NEG BT MAIN-STATION 3 Ketones Negative NEG BT MAIN-STATION 3 Bilirubin Negative NEG BT MAIN-STATION 3 Nitrate Negative NEG BT MAIN-STATION 3 Urobilinogen,Se <1.0 0.2 - 1.0 EU/dL BT MAIN-STATION mi-Qn 3 Leukocyte Negative NEG BT MAIN-STATION 3 Occult Blood Negative NEG BT MAIN-STATION 3 RBC 2 0 - 4 /HPF BT MAIN-STATION 3 WBC 1 0 - 5 /HPF BT MAIN-STATION 3 Epithelial Cell 1 /HPF BT MAIN-STATION 3 Specimen Urine Performing Organization Address [facility] Phone Number MISYS BT MAIN-STATION 3 * LIVER PROFILE (10/12/2018 9:08 AM DRILLER HELPER) Protein, Total, 6.9 6.0 - 8.3 g/dL BT MAIN-STATION Serum 1 Albumin 4.4 4.2 - 5.5 g/dL BT MAIN-STATION 1 Bilirubin, 1.1 0.2 - 1.2 mg/dL BT MAIN-STATION Total 1 Alkaline 59 34 - 104 U/L BT MAIN-STATION Phosphatase, S 1 AST (SGOT) 12 (L) 13 - 39 U/L BT MAIN-STATION 1 ALT 12 7 - 52 U/L BT MAIN-STATION 1 D Bilirubin 0.2 0.0 - 0.2 mg/dL BT MAIN-STATION 1 Specimen Blood Performing Organization Address City/State/Zipcode Phone Number [facility] BT MAIN-STATION 1 * LIPASE (10/12/2018 9:08 AM DRILLER HELPER) Lipase 11 11 - 82 U/L BT MAIN-STATION 1 Specimen Blood Performing Organization Address [facility]/[place] Phone Number MISYS BT MAIN-STATION 1 * CBC/DIFF (10/12/2018 9:08 AM DRILLER HELPER) WBC 4.4 (L) 4.5 - 12.0 K/uL [...] 35.1 - 43.9 fL BT MAIN-STATION 2 Platelets 207 150 - 400 K/uL BT MAIN-STATION 2 Mean Platelet 12.1 9.4 - 12.4 fL BT MAIN-STATION Volume 2 Percent NRBC 0.0 BT MAIN-STATION 2 Absolute NRBC 0.00 BT MAIN-STATION 2 Neutrophils 58.3 34.0 - 67.9 % BT MAIN-STATION 2 Lymphs 35.1 21.8 - 50.0 % BT MAIN-STATION 2 Monocytes 5.2 (L) 5.3 - 12.0 % BT MAIN-STATION 2 Eos 0.9 0.8 - 5.0 % BT MAIN-STATION 2 Basos 0.5 0.2 - 1.2 % BT MAIN-STATION 2 Immature 0.0 0.0 - 0.5 BT MAIN-STATION Granulocytes 2 Neutrophils 2.57 1.78 - 5.36 K/uL BT MAIN-STATION (Absolute) 2 Lymphs 1.55 1.32 - 3.57 K/uL BT MAIN-STATION (Absolute) 2 Monocytes(Absol 0.23 (L) 0.30 - 0.82 K/uL BT MAIN-STATION [place]) 2 Eos (Absolute) 0.04 0.04 - 0.54 K/uL BT MAIN-STATION 2 Baso (Absolute) 0.02 0.01 - 0.08 K/uL BT MAIN-STATION 2 Immature Grans 0.00 0.00 - 0.03 K/uL BT MAIN-STATION (Abs) 2 Specimen Blood Performing Organization Address City/State/Zipcode Phone Number MISYS BT MAIN-STATION 2 after 08/06/2018 Insurance Type Payer Benefit Subscriber ID Effective Phone Address Plan / Dates Group [facility] [employer] xxxxxx 2018- [phone] [id number] [place] [address] [employer] [employer] [place] xxxxxx 2018 [address] [employer] FAMILY [id number] PLANNING [address] [place] [address] [place] [phone]
--- OUTSIDE RECORDS SUMMARY | 2019-08-07 07:16 | XMS REPORT | Summary of Care ---
Author Author [facility] Organization [facility] Address Unknown Phone Unavailable Encounter HQ Jovita(KATHLEEN) [id number] Date(s): 09/04/18 - 09/04/18 [facility] [address] [place] [address]- [facility] [phone] Encounter Diagnosis Chondrocostal junction syndrome [Tietze] (Final) - 09/08/18 Other specified anxiety disorders (Final) - Personal history of nicotine dependence (Final) - Costochondritis, acute (Discharge Diagnosis) - 09/04/18 Discharge Disposition: Home or Self Care Attending Physician: Brad Pascual MD Vital Signs Most recent to 1 2 oldest [Reference Range]: Height 170.18 cm (09/04/18 7:40 PM) Temperature Oral 98.0 DegF 98.2 DegF [96.4-99.1 DegF] (09/04/18 11:34 PM) (09/04/18 7:40 PM) Blood Pressure 139/52 mmHg 132/88 mmHg [90-140/60-90 mmHg] (09/04/18 11:34 PM) (09/04/18 7:40 PM) Respiratory Rate 20 BRMIN 18 BRMIN [14-20 BRMIN] (09/04/18 11:34 PM) (09/04/18 7:40 PM) Peripheral Pulse 61 bpm Rate [60-100 bpm] (09/04/18 7:40 PM) Weight 95.455 kg (09/04/18 7:40 PM) Body Mass Index 32.96 m2 (09/04/18 7:40 PM) Problem List Condition Effective Dates Status Health Status Informant Anxiety(Confirmed) Active Depression(Confirmed Active ) Allergies, Adverse Reactions, Alerts No Known Medication Allergies Medications famotidine 20 mg, 2 mL, Route: IVP, Drug form: INJ, ONCE, Dosing Weight 100, kg, Priority: STAT, Start date: 09/04/18 19:42:00 CDT, Stop date: 09/04/18 19:42:00 CDT Notes: (Same as: Pepcid)Can be dilute in 5-10cc NS IVP: Slow IV push over at le ast 2 minutes. Start Date: 09/04/18 Stop Date: 09/04/18 Status: Completed GI cocktail (aluminum hydroxide/magnesium hydroxide/lidocaine/simethicone) 30 mL, Route: PO, Drug Form: SUSP, Dosing Weight 100, kg, ONCE, STAT, Start date : 09/04/18 19:43:00 CDT, Stop date: 09/04/18 19:43:00 CDT Notes: G.I. Cocktail - aluminum hydroxide/magnesium hydroxide/lidocaine/simethic one Start Date: 09/04/18 Stop Date: 09/04/18 Status: Completed naproxen 500 mg oral tablet 500 mg=1 tab, PO, Q12H, PRN Pain, X 10 day, # 20 tab, 0 Refill(s) Start Date: 09/04/18 Stop Date: 09/14/18 Status: Completed ondansetron 4 mg, 2 mL, Route: IVP, Drug form: INJ, ONCE, Dosing Weight 100, kg, Priority: S TAT, Start date: 09/04/18 19:42:00 CDT, Stop date: 09/04/18 19:42:00 CDT Notes: (Same as: Zofran) MEDICATION WASTE Product Size: 4 mgProduct Was lisandra: ___ mg Start Date: 09/04/18 Stop Date: 09/04/18 Status: Completed Saline Flush 0.9% 10 mL, Route: IVP, Drug Form: INJ, Dosing Weight 100, kg, PRN, PRN Line Flush, S tart date: 09/04/18 19:42:00 CDT, Duration: 30 day, Stop date: 10/04/18 18:41:00 [employer] CONTROL OFFICER Notes: (Same as: BD Posiflush) Start Date: 09/04/18 Stop Date: 09/05/18 Status: Discontinued Sodium Chloride 0.9% (Bolus) IV 1,000 mL, 1000 ml/hr, Infuse Over: 1 hr, Route: IV, 1,000, Drug form: INJ, ONCE, Priority: STAT, Dosing Weight 100 kg, Start date: 09/04/18 19:42:00 CDT, Stop d ate: 09/04/18 19:42:00 CDT Start Date: 09/04/18 Stop Date: 09/04/18 Status: Completed Results Most recent to 1 oldest [Reference Range]: Neutrophils # 2.8 K/CMM [1.5-8.1 K/CMM] (09/04/18 8:12 PM) Lymphocytes # 2.3 K/CMM [1.0-5.5 K/CMM] (09/04/18 8:12 PM) Monocytes # [0.0-0.8 0.3 K/CMM K/CMM] (09/04/18 8:12 PM) Eosinophils # 0.1 K/CMM [0.0-0.5 K/CMM] (09/04/18 8:12 PM) eGFR 121 mL/min/1.73m2 1 *NA* (09/04/18 8:12 PM) A/G Ratio [0.7-1.6] 1.1 (09/04/18 8:12 PM) Albumin Lvl [3.5-5.0 3.9 g/dL g/dL] (09/04/18 8:12 PM) Alk Phos [39-136 70 unit/L unit/L] (09/04/18 8:12 PM) ALT [0-65 unit/L] 24 unit/L (09/04/18 8:12 PM) AGAP [10.0-20.0 10.6 mEq/L mEq/L] (09/04/18 8:12 PM) AST [0-37 unit/L] 18 unit/L (09/04/18 8:12 PM) B/C Ratio [6-25] 18 (09/04/18 8:12 PM) Basophils [0.0-1.0 0.5 % %] (09/04/18 8:12 PM) BUN [7-22 mg/dL] 17 mg/dL (09/04/18 8:12 PM) Calcium Lvl 9.0 mg/dL [8.5-10.5 mg/dL] (09/04/18 8:12 PM) Chloride Lvl [95-109 106 mEq/L mEq/L] (09/04/18 8:12 PM) CO2 [24-32 mEq/L] 28 mEq/L (09/04/18 8:12 PM) Creatinine Lvl 0.95 mg/dL [0.50-1.40 mg/dL] (09/04/18 8:12 PM) Eosinophils [0.0-4.0 1.6 % %] (09/04/18 8:12 PM) Globulin [2.7-4.2 3.5 g/dL g/dL] (09/04/18 8:12 PM) Glucose Lvl [70-99 116 mg/dL mg/dL] *HI* (09/04/18 8:12 PM) Hct [42.0-54.0 %] 40.7 % *LOW* (09/04/18 8:12 PM) Hgb [14.0-18.0 g/dL] 13.7 g/dL *LOW* (09/04/18 8:12 PM) Potassium Lvl 3.6 mEq/L [3.5-5.1 mEq/L] (09/04/18 8:12 PM) Lipase Lvl [73-393 145 unit/L unit/L] (09/04/18 8:12 PM) Lymphocytes 42.4 % [20.0-40.0 %] *HI* (09/04/18 8:12 PM) MCH [27.0-31.0 pg] 26.6 pg *LOW* (09/04/18 8:12 PM) MCHC [32.0-36.0 33.8 g/dL g/dL] (09/04/18 8:12 PM) MCV [80.0-94.0 fL] 78.9 fL *LOW* (09/04/18 8:12 PM) Microcyte [None 1+ Seen] *ABN* (09/04/18 8:12 PM) Monocytes [2.0-12.0 4.7 % %] (09/04/18 8:12 PM) MPV [7.4-10.4 fL] 9.3 fL (09/04/18 8:12 PM) Sodium Lvl [135-145 141 mEq/L mEq/L] (09/04/18 8:12 PM) Platelet [133-450 197 K/CMM K/CMM] (09/04/18 8:12 PM) Segs [45.0-75.0 %] 50.8 % (09/04/18 8:12 PM) Total Protein 7.4 g/dL [6.4-8.4 g/dL] (09/04/18 8:12 PM) RBC [4.70-6.10 5.15 M/CMM M/CMM] (09/04/18 8:12 PM) RDW [11.5-14.5 %] 14.2 % (09/04/18 8:12 PM) Bili Total [0.2-1.3 0.6 mg/dL mg/dL] (09/04/18 8:12 PM) Troponin-I <0.02 ng/mL [0.00-0.40 ng/mL] (09/04/18 8:12 PM) WBC [3.7-10.4 K/CMM] 5.5 K/CMM (09/04/18 8:12 PM) 1Result Comment: The eGFR is calculated using the CKD-EPI formula. In most young, healthy individuals the eGFR will be >90 mL/min/1.73m2. The eGFR declines with age. An eGFR of 60-89 may be normal in some populations, particularly the elderly, for whom the CKD-EPI formula has not been extensively validated. Use of the eGFR is not recommended in the following populations: Individuals with unstable creatinine concentrations, including patients and those with serious co-morbid conditions. Patients with extremes in muscle mass or diet. The data above are obtained from the National Kidney Disease Education Program ( NKDEP) which additionally recommends that when the eGFR is used in patients with extremes of body mass index for purposes of drug dosing, the eGFR should be mul tiplied by the estimated BMI. Immunizations No data available for this section Procedures No data available for this section Social History Social History Type Response Smoking Status Never smoker; Exposure to Tobacco Smoke None; Cigarette Smoking Last 365 Days No; Reg Smoking Cessation Counseling No entered on: 09/04/18 Assessment and Plan No data available for this section
--- OUTSIDE RECORDS SUMMARY | 2019-08-07 07:16 | XMS REPORT | Summary of Care ---
Author Organization Unknown Address Unknown Phone Unavailable Encounter HQ Jovita(KATHLEEN) [id number] Date(s): 05/13/15 - 05/13/15 [facility] [address] [employer] provided by [facility] [place] [address]- Discharge Diagnosis: Abdominal pain Discharge Diagnosis: Nausea and vomiting Discharge Disposition: Home Physician Attending: Evelyne Chan MD Vital Signs 1 2 3 Most recent to oldest [Reference Range]: 165.1 cm (05/13/15 9:52 AM) Height 98.2 DegF (05/13/15 9:15 PM) 97.4 DegF (05/13/15 3:29 PM) 98 DegF (05/13/15 1:16 PM) Temperature Oral [96.4-99.1 DegF] 123/77 mmHg (05/13/15 9:15 PM) 123/90 mmHg (05/13/15 7:35 PM) 132/76 mmHg (05/13/15 6:59 PM) Blood Pressure [90-140/60-90 mmHg] 18 BRMIN (05/13/15 9:15 PM) 17 BRMIN (05/13/15 6:59 PM) 18 BRMIN (05/13/15 5:38 PM) Respiratory Rate [14-20 BRMIN] 60 bpm (05/13/15 6:59 PM) 60 bpm (05/13/15 5:38 PM) 58 bpm *LOW* (05/13/15 3:29 PM) Peripheral Pulse Rate [60-100 bpm] 81.818 kg (05/13/15 9:52 AM) Weight 30.02 m2 (05/13/15 9:52 AM) Body Mass Index Problem List Condition Effective Dates Status Health Status Informant Anxiety(Confirmed) Active Depression(Confirmed Active ) Allergies, Adverse Reactions, Alerts Substance Reaction Severity Status NKDA Active Medications GI cocktail 30 mL, Route: PO, Drug Form: SUSP, Dosing Weight 81.818, kg, ONCE, STAT, Start d ate: 05/13/15 16:44:00, Stop date: 05/13/15 16:44:00 Notes: G.I. Cocktail=antacid with simethicone 22.5 mL - lidocaine viscous 7.5 mL Start Date: 05/13/15 Stop Date: 05/13/15 Status: Completed NexIUM 20 mg oral delayed release capsule 20 mg=1 cap, PO, Daily, # 30 cap, 0 Refill(s) Start Date: 05/13/15 Status: Ordered NexIUM 20 mg oral delayed release capsule 20 mg=1 cap, PO, Daily, # 30 cap, 0 Refill(s) Start Date: 05/13/15 Status: Ordered NexIUM 20 mg oral delayed release capsule 20 mg=1 cap, PO, Daily, # 30 cap, 0 Refill(s) Start Date: 05/13/15 Status: Ordered Pepcid 20 mg oral tablet 20 mg=1 tab, PO, BID, # 60 tab, 0 Refill(s) Start Date: 05/13/15 Status: Ordered Sodium Chloride 0.9% (Bolus) IV 1,000 mL, 1,000 ml/hr, Infuse Over: 1 hr, Route: IV, 1,000, Drug form: INJ, ONCE , Priority: STAT, Dosing Weight 81.818 kg, Start date: 05/13/15 16:38:00, Durati on: 1 doses or times, Stop date: 05/13/15 16:38:00 Start Date: 05/13/15 Stop Date: 05/13/15 Status: Completed Zofran ODT 4 mg oral tablet, disintegrating 4 mg=1 tab, PO, BID, PRN Nausea and Vomiting, Dissolve tab under tongue, X 5 day , # 10 tab, 0 Refill(s) Special Instructions: Dissolve tab under tongue Start Date: 05/13/15 Stop Date: 05/18/15 Status: Ordered Results ELECTROLYTES Most recent to 1 oldest [Reference Range]: Sodium Lvl [135-145 138 mEq/L mEq/L] (05/13/15 5:20 PM) Potassium Lvl 4.8 mEq/L 1 [3.5-5.1 mEq/L] (05/13/15 5:20 PM) Chloride Lvl [95-109 102 mEq/L mEq/L] (05/13/15 5:20 PM) CO2 [24-32 mEq/L] 29 mEq/L (05/13/15 5:20 PM) AGAP [10.0-20.0 11.8 mEq/L mEq/L] (05/13/15 5:20 PM) 1Result Comment: Specimen Moderately Hemolyzed. CHEM PANEL Most recent to 1 oldest [Reference Range]: Creatinine Lvl 0.8 mg/dL [0.5-1.4 mg/dL] (05/13/15 5:20 PM) eGFR 138 mL/min/1.73m2 2 *NA* (05/13/15 5:20 PM) BUN [7-22 mg/dL] 13 mg/dL (05/13/15 5:20 PM) Glucose Lvl [70-99 92 mg/dL 3 mg/dL] (05/13/15 5:20 PM) Total Protein 8.3 g/dL [6.4-8.4 g/dL] (05/13/15 5:20 PM) Albumin Lvl [3.5-5.0 4.2 g/dL g/dL] (05/13/15 5:20 PM) Globulin [2.0-4.0 4.1 g/dL g/dL] *HI* (05/13/15 5:20 PM) A/G Ratio [0.7-1.6] 1.0 (05/13/15 5:20 PM) Calcium Lvl 9.5 mg/dL [8.5-10.5 mg/dL] (05/13/15 5:20 PM) Phosphorus [2.5-4.5 3.8 mg/dL mg/dL] (05/13/15 5:20 PM) Magnesium Lvl 2.3 mg/dL [1.8-2.4 mg/dL] (05/13/15 5:20 PM) ALT [0-65 unit/L] 31 unit/L (05/13/15 5:20 PM) AST [0-37 unit/L] 33 unit/L (05/13/15 5:20 PM) Alk Phos [39-136 70 unit/L unit/L] (05/13/15 5:20 PM) Bili Total [0.2-1.3 1.2 mg/dL mg/dL] (05/13/15 5:20 PM) Bili Direct [0.0-0.3 0.1 mg/dL mg/dL] (05/13/15 5:20 PM) Bili Indirect 1.1 mg/dL [0.0-1.0 mg/dL] *HI* (05/13/15 5:20 PM) Lipase Lvl [73-393 117 unit/L unit/L] (05/13/15 5:20 PM) Lactic Acid Lvl 0.5 mMol/L [0.5-2.2 mMol/L] (05/13/15 5:20 PM) 2Result Comment: The eGFR is calculated using the [...] be mul tiplied by the estimated BMI. 3Interpretive Data: Adult reference range values reflect the clinical guidelines of the [place] [employer]. IMMUNOLOGY Most recent to 1 oldest [Reference Range]: CDC HIV 4th GEN Negative [Negative] (05/13/15 5:20 PM) HEMATOLOGY Most recent to 1 oldest [Reference Range]: WBC [3.7-10.4 K/CMM] 5.9 K/CMM (05/13/15 5:20 PM) RBC [4.70-6.10 5.35 M/CMM M/CMM] (05/13/15 5:20 PM) Hgb [14.0-18.0 g/dL] 13.8 g/dL *LOW* (05/13/15 5:20 PM) Hct [42.0-54.0 %] 43.7 % (05/13/15 5:20 PM) MCV [80.0-94.0 fL] 81.7 fL (05/13/15 5:20 PM) MCH [27.0-31.0 pg] 25.8 pg *LOW* (05/13/15 5:20 PM) MCHC [32.0-36.0 31.5 g/dL g/dL] *LOW* (05/13/15 5:20 PM) RDW [11.5-14.5 %] 14.0 % (05/13/15 5:20 PM) Platelet [133-450 208 K/CMM K/CMM] (05/13/15 5:20 PM) MPV [7.4-10.4 fL] 10.1 fL (05/13/15 5:20 PM) Segs [45.0-75.0 %] 67.5 % (05/13/15 5:20 PM) Lymphocytes 27.2 % [20.0-40.0 %] (05/13/15 5:20 PM) Monocytes [2.0-12.0 4.5 % %] (05/13/15 5:20 PM) Eosinophils [0.0-4.0 0.5 % %] (05/13/15 5:20 PM) Basophils [0.0-1.0 0.3 % %] (05/13/15 5:20 PM) Segs-Bands # 4.0 K/CMM [1.5-8.1 K/CMM] (05/13/15 5:20 PM) Lymphocytes # 1.6 K/CMM [1.0-5.5 K/CMM] (05/13/15 5:20 PM) Monocytes # [0.0-0.8 0.3 K/CMM K/CMM] (05/13/15 5:20 PM) Immunizations No data available for this section Procedures No data available for this section Social History Social History Type Response Smoking Status Former smoker; Exposure to Tobacco Smoke None; Cigarette Smoking Last 365 Days Yes; Reg Smoking Cessation Counseling Yes1 1quit 9 months ago Assessment and Plan No data available for this section
--- OUTSIDE RECORDS SUMMARY | 2019-08-07 07:16 | XMS REPORT | Summary of Care ---
Author Organization Unknown Address Unknown Phone Unavailable Encounter [facility](KATHLEEN) [id number] Date(s): 01/25/15 - 01/26/15 [facility] [address] [place] [address]- Discharge Diagnosis: Esophageal reflux Discharge Disposition: Home Physician Attending: Yuri Vasquez MD Vital Signs Most recent to 1 2 oldest [Reference Range]: Height 167.64 cm (01/25/15 8:27 PM) Temperature Oral 98.7 DegF 97.7 DegF [96.4-99.1 DegF] (01/26/15 5:41 AM) (01/25/15 8:27 PM) Blood Pressure 126/76 mmHg 124/78 mmHg [90-140/60-90 mmHg] (01/26/15 5:41 AM) (01/25/15 8:27 PM) Respiratory Rate 20 BRMIN 20 BRMIN [14-20 BRMIN] (01/26/15 5:41 AM) (01/25/15 8:27 PM) Peripheral Pulse 76 bpm 82 bpm Rate [60-100 bpm] (01/26/15 5:41 AM) (01/25/15 8:27 PM) Weight 80.909 kg (01/25/15 8:27 PM) Body Mass Index 28.79 m2 (01/25/15 8:27 PM) Problem List Condition Effective Dates Status Health Status Informant Anxiety(Confirmed) Active Depression(Confirmed Active ) Allergies, Adverse Reactions, Alerts Substance Reaction Severity Status NKDA Active Medications GI cocktail 30 mL, Route: PO, Drug Form: SUSP, Dosing Weight 80.909, kg, ONCE, STAT, Start d ate: 01/26/15 4:30:00, Stop date: 01/26/15 4:30:00 Notes: G.I. Cocktail=antacid with simethicone 22.5 mL - lidocaine viscous 7.5 mL Start Date: 01/26/15 Stop Date: 01/26/15 Status: Completed Zantac 300 oral tablet 300 mg=1 tab, PO, Daily, # 30 tab, 0 Refill(s) Start Date: 01/26/15 Status: Ordered Results No data available for this section Immunizations No data available for this section Procedures No data available for this section Social History Social History Type Response Smoking Status Never smoker; Exposure to Tobacco Smoke None; Cigarette Smoking Last 365 Days No; Reg Smoking Cessation Counseling No Assessment and Plan No data available for this section
--- OUTSIDE RECORDS SUMMARY | 2019-08-07 07:16 | XMS REPORT | Summary of Care ---
Author Organization Unknown Address Unknown Phone Unavailable Encounter [facility](KATHLEEN) [id number] Date(s): 01/24/15 - 01/25/15 [facility] [address] [place] [address]- [phone] Discharge Diagnosis: Chest pain Discharge Disposition: Home Physician Attending: Fareed Rodriguez MD Vital Signs 1 2 3 Most recent to oldest [Reference Range]: 162.56 cm (01/24/15 9:03 PM) Height 98.4 DegF (01/25/15 12:04 AM) 98.3 DegF (01/24/15 9:03 PM) Temperature Oral [96.4-99.1 DegF] 116/73 mmHg (01/25/15 2:20 AM) 126/75 mmHg (01/25/15 1:18 AM) 91/52 mmHg (01/25/15 12:04 AM) Blood Pressure [90-140/60-90 mmHg] 18 BRMIN (01/25/15 2:20 AM) 18 BRMIN (01/25/15 1:18 AM) 16 BRMIN (01/25/15 12:04 AM) Respiratory Rate [14-20 BRMIN] 84 bpm (01/24/15 9:03 PM) Peripheral Pulse Rate [60-100 bpm] 77.273 kg (01/24/15 9:03 PM) Weight 29.24 m2 (01/24/15 9:03 PM) Body Mass Index Problem List Condition Effective Dates Status Health Status Informant Anxiety(Confirmed) Active Depression(Confirmed Active ) Allergies, Adverse Reactions, Alerts Substance Reaction Severity Status NKDA Active Medications ketOROLAC 30 mg, 1 mL, Route: IVP, Drug form: INJ, ONCE, Dosing Weight 77.273, kg, Priorit y: STAT, Start date: 01/25/15 1:09:00, Stop date: 01/25/15 1:09:00 Notes: (Same as:Toradol) IV bolus must be given >15 seconds. Give IM administration slowly and deeply into the muscle. Not for use > 4 days Start Date: 01/25/15 Stop Date: 01/25/15 Status: Completed Results ELECTROLYTES Most recent to 1 2 oldest [Reference Range]: Sodium Lvl [135-145 139 mEq/L mEq/L] (01/24/15 9:19 PM) Potassium Lvl 3.7 mEq/L [3.5-5.1 mEq/L] (01/24/15 9:19 PM) Chloride Lvl [95-109 104 mEq/L mEq/L] (01/24/15 9:19 PM) CO2 [24-32 mEq/L] 29 mEq/L (01/24/15: PM) AGAP [10.0-20.0 9.7 mEq/L mEq/L] *LOW* (01/24/15 9:19 PM) CHEM PANEL Most recent to 1 2 oldest [Reference Range]: Creatinine Lvl 1.2 mg/dL [0.5-1.4 mg/dL] (01/24/15 9:19 PM) eGFR 93 mL/min/1.73m2 1 *NA* (01/24/15 9:19 PM) BUN [7-22 mg/dL] 12 mg/dL (01/24/15 9:19 PM) B/C Ratio [6-25] 10 (01/24/15 9:19 PM) Glucose Lvl [70-99 94 mg/dL 2 mg/dL] (01/24/15 9:19 PM) Total Protein 7.4 g/dL [6.4-8.4 g/dL] (01/24/15 9:19 PM) Albumin Lvl [3.5-5.0 3.9 g/dL g/dL] (01/24/15 9:19 PM) Globulin [2.0-4.0 3.5 g/dL g/dL] (01/24/15 9:19 PM) A/G Ratio [0.7-1.6] 1.1 (01/24/15 9:19 PM) Calcium Lvl 9.4 mg/dL [8.5-10.5 mg/dL] (01/24/15 9:19 PM) ALT [0-65 unit/L] 19 unit/L (01/24/15 9:19 PM) AST [0-37 unit/L] 11 unit/L (01/24/15 9:19 PM) Alk Phos [39-136 66 unit/L unit/L] (01/24/15 9:19 PM) Bili Total [0.2-1.3 0.9 mg/dL mg/dL] (01/24/15 9:19 PM) 1Result Comment: The eGFR is calculated [...] be mul tiplied by the estimated BMI. 2Interpretive Data: Adult reference range values reflect the clinical guidelines of the [place] [employer]. CARDIAC ENZYMES Most recent to 1 2 oldest [Reference Range]: Total CK [12-191 102 unit/L 106 unit/L unit/L] (01/25/15 12:01 AM) (01/24/15 9:19 PM) CK MB [0.5-3.6 <0.5 ng/mL 0.8 ng/mL ng/mL] (01/25/15 12:01 AM) (01/24/15 9:19 PM) CK MB Index <0.5 0.8 [0.0-2.5] (01/25/15 12:01 AM) (01/24/15 9:19 PM) Troponin-I <0.02 ng/mL <0.02 ng/mL [0.00-0.40 ng/mL] (01/25/15 12:01 AM) (01/24/15 9:19 PM) HEMATOLOGY Most recent to 1 2 oldest [Reference Range]: WBC [3.7-10.4 K/CMM] 7.6 K/CMM (01/24/15 9:19 PM) RBC [4.70-6.10 5.12 M/CMM M/CMM] (01/24/15:19 PM) Hgb [14.0-18.0 g/dL] 13.5 g/dL *LOW* (01/24/15: PM) Hct [42.0-54.0 %] 42.4 % (01/24/15: PM) MCV [80.0-94.0 fL] 82.8 fL (01/24/15: PM) MCH [27.0-31.0 pg] 26.5 pg *LOW* (01/24/15 PM) MCHC [32.0-36.0 32.0 g/dL g/dL] (01/24/15: PM) RDW [11.5-14.5 %] 13.5 % (01/24/15:19 PM) Platelet [133-450 186 K/CMM K/CMM] (01/24/15:19 PM) MPV [7.4-10.4 fL] 9.6 fL (01/24/15: PM) Segs [45.0-75.0 %] 71.8 % (01/24/15:19 PM) Lymphocytes 22.8 % [20.0-40.0 %] (01/24/15:19 PM) Monocytes [2.0-12.0 4.7 % %] (01/24/15 9:19 PM) Eosinophils [0.0-4.0 0.4 % %] (01/24/15 9:19 PM) Basophils [0.0-1.0 0.3 % %] (01/24/15: PM) Segs-Bands # 5.5 K/CMM [1.5-8.1 K/CMM] (01/24/15 9:19 PM) Lymphocytes # 1.7 K/CMM [1.0-5.5 K/CMM] (01/24/15 9:19 PM) Monocytes # [0.0-0.8 0.4 K/CMM K/CMM] (01/24/15 9:19 PM) Immunizations No data available for this section Procedures No data available for this section Social History Social History Type Response Smoking Status Never smoker; Exposure to Tobacco Smoke None; Cigarette Smoking Last 365 Days No; Reg Smoking Cessation Counseling No Assessment and Plan No data available for this section
--- OUTSIDE RECORDS SUMMARY | 2019-08-07 07:16 | XMS REPORT | Summary of Care ---
Author Organization Unknown Address Unknown Phone Unavailable Encounter WILLIAM Hussein(KATHLEEN) [id number] Date(s): 07/26/14 - 07/26/14 [facility] [address] Discharge Diagnosis: Abdominal pain Discharge Disposition: Home Physician Attending: Mekhi Kim MD Reason for Visit ABD PAIN Vital Signs Most recent to 1 2 oldest [Reference Range]: Height 165.1 cm (07/26/14 2:19 AM) Temperature Oral 98.6 DegF 98.5 DegF [96.4-99.1 DegF] (07/26/14 6:07 AM) (07/26/14 2:30 AM) Systolic Blood 125 mmHg 139 mmHg Pressure [90-140 (07/26/14 6:07 AM) (07/26/14 2:30 AM) mmHg] Diastolic Blood 79 mmHg 89 mmHg Pressure [60-90 (07/26/14 6:07 AM) (07/26/14 2:30 AM) mmHg] Respiratory Rate 16 BRMIN 20 BRMIN [14-20 BRMIN] (07/26/14 6:07 AM) (07/26/14 2:30 AM) Peripheral Pulse 71 bpm 78 bpm Rate [60-100 bpm] (07/26/14 6:07 AM) (07/26/14 2:30 AM) Weight 81.818 kg (07/26/14 2:19 AM) Body Mass Index 30.02 m2 (07/26/14 2:19 AM) Problem List No data available for this section Allergies, Adverse Reactions, Alerts Substance Reaction Severity Status NKDA Active Medications Bentyl 20 mg, Route: IM, ONCE, Dosing Weight 81.818, kg, Start date: 07/26/14 3:10:00, Stop date: 07/26/14 3:10:00 Start Date: 07/26/14 Stop Date: 07/26/14 Status: Completed Bentyl 10 mg oral capsule 10 mg=1 cap, PO, QID, # 28 cap, 0 Refill(s) Start Date: 07/26/14 Stop Date: 08/02/14 Status: Ordered morphine Sulfate 4 mg, Route: IVP, ONCE, Dosing Weight 81.818, kg, Start date: 07/26/14 3:09:00, Stop date: 07/26/14 3:09:00 Start Date: 07/26/14 Stop Date: 07/26/14 Status: Completed NS (Bolus) IV 1,000 mL, 1,000 ml/hr, Infuse Over: 1 hr, Route: IV, ONCE, Priority: STAT, Dosin g Weight 81.818 kg, Start date: 07/26/14 3:09:00, Duration: 1 doses or times, St op date: 07/26/14 3:09:00 Start Date: 07/26/14 Stop Date: 07/26/14 Status: Completed Protonix 40 mg, Route: IVP, ONCE, Dosing Weight 81.818, kg, Priority: STAT, Start date: 0 07/26/14 3:10:00, Stop date: 07/26/14 3:10:00 Start Date: 07/26/14 Stop Date: 07/26/14 Status: Completed Zofran 4 mg, Route: IVP, Drug form: INJ, ONCE, Dosing Weight 81.818, kg, Priority: STAT , Start date: 07/26/14 3:09:00, Stop date: 07/26/14 3:09:00 Start Date: 07/26/14 Stop Date: 07/26/14 Status: Completed Zofran ODT 4 mg oral tablet, disintegrating 4 mg=1 tab, PO, BID, Nausea and Vomiting, Dissolve tab under tongue, # 10 tab, 0 Refill(s) Special Instructions: Dissolve tab under tongue Start Date: 07/26/14 Status: Ordered Results ELECTROLYTES Most recent to 1 oldest [Reference Range]: Sodium Lvl [135-145 138 mEq/L mEq/L] (07/26/14 2:32 AM) Potassium Lvl 3.5 mEq/L [3.5-5.1 mEq/L] (07/26/14 2:32 AM) Chloride Lvl [95-109 101 mEq/L mEq/L] (07/26/14 2:32 AM) CO2 [24-32 mEq/L] 31 mEq/L (07/26/14 2:32 AM) AGAP [10.0-20.0 9.5 mEq/L mEq/L] *LOW* (07/26/14 2:32 AM) CHEM PANEL Most recent to 1 oldest [Reference Range]: Creatinine Lvl 1.0 mg/dL [0.5-1.4 mg/dL] (07/26/14 2:32 AM) eGFR 116 mL/min/1.73m2 1 *NA* (07/26/14 2:32 AM) BUN [7-22 mg/dL] 14 mg/dL (07/26/14 2:32 AM) B/C Ratio [6-25] 14 (07/26/14 2:32 AM) Glucose Lvl [70-99 142 mg/dL 2 mg/dL] *HI* (07/26/14 2:32 AM) Total Protein 7.5 g/dL [6.4-8.4 g/dL] (07/26/14 2:32 AM) Albumin Lvl [3.5-5.0 4.0 g/dL g/dL] (07/26/14 2:32 AM) Globulin [2.0-4.0 3.5 g/dL g/dL] (07/26/14 2:32 AM) A/G Ratio [0.7-1.6] 1.1 (07/26/14 2:32 AM) Calcium Lvl 8.8 mg/dL [8.5-10.5 mg/dL] (07/26/14 2:32 AM) ALT [0-65 unit/L] 33 unit/L (07/26/14 2:32 AM) AST [0-37 unit/L] 16 unit/L (07/26/14 2:32 AM) Alk Phos [39-136 73 unit/L unit/L] (07/26/14 2:32 AM) Bili Total [0.2-1.3 0.7 mg/dL mg/dL] (07/26/14 2:32 AM) Amylase Lvl [25-115 75 unit/L unit/L] (07/26/14 2:32 AM) Lipase Lvl [73-393 143 unit/L unit/L] (07/26/14 2:32 AM) 1Result Comment: The eGFR is calculated using [...] values reflect the clinical guidelines of the [place] [employer]. URINE AND STOOL Most recent to 1 oldest [Reference Range]: UA Turbidity [Clear] Clear (07/26/14 2:27 AM) UA Color Ltyellow *NA* (07/26/14 2:27 AM) UA pH [5.0-8.0] 6.0 (07/26/14 2:27 AM) UA Spec Grav 1.021 [<=1.030] (07/26/14 2:27 AM) UA Glucose [Negative Negative mg/dL mg/dL] *NA* (07/26/14 2:27 AM) UA Blood [Negative] Negative (07/26/14 2:27 AM) UA Ketones [Negative Negative mg/dL mg/dL] *NA* (07/26/14 2:27 AM) UA Protein [Negative Negative mg/dL mg/dL] (07/26/14 2:27 AM) UA Urobilinogen <=1.0 mg/dL [0.1-1.0 mg/dL] *NA* (07/26/14 2:27 AM) UA Bili [Negative] Negative *NA* (07/26/14 2:27 AM) UA Leuk Est Trace [Negative] *ABN* (07/26/14 2:27 AM) UA Nitrite Negative [Negative] (07/26/14 2:27 AM) UA WBC [0-5 /HPF] 6 /HPF *HI* (07/26/14 2:27 AM) UA RBC [0-2 /HPF] 2 /HPF (07/26/14 2:27 AM) UA Bacteria [None Occasional /HPF Seen /HPF] *NA* (07/26/14 2:27 AM) UA Sq Epi None Seen *NA* (07/26/14 2:27 AM) UA Mucus [None Seen Few /LPF /LPF] *NA* (07/26/14 2:27 AM) IMMUNOLOGY Most recent to 1 oldest [Reference Range]: CDC HIV 4th GEN Negative [Negative] (07/26/14 2:32 AM) HEMATOLOGY Most recent to 1 oldest [Reference Range]: WBC [3.7-10.4 K/CMM] 6.8 K/CMM (07/26/14 2:32 AM) RBC [4.70-6.10 4.94 M/CMM M/CMM] (07/26/14 2:32 AM) Hgb [14.0-18.0 g/dL] 14.1 g/dL (07/26/14 2:32 AM) Hct [42.0-54.0 %] 41.9 % *LOW* (07/26/14 2:32 AM) MCV [80.0-94.0 fL] 84.9 fL (07/26/14 2:32 AM) MCH [27.0-31.0 pg] 28.5 pg (07/26/14 2:32 AM) MCHC [32.0-36.0 33.6 g/dL g/dL] (07/26/14 2:32 AM) RDW [11.5-14.5 %] 13.5 % (07/26/14 2:32 AM) Platelet [133-450 209 K/CMM K/CMM] (07/26/14 2:32 AM) MPV [7.4-10.4 fL] 10.0 fL (07/26/14 2:32 AM) Segs [45.0-75.0 %] 70.1 % (07/26/14 2:32 AM) Lymphocytes 24.7 % [20.0-40.0 %] (07/26/14 2:32 AM) Monocytes [2.0-12.0 4.4 % %] (07/26/14 2:32 AM) Eosinophils [0.0-4.0 0.6 % %] (07/26/14 2:32 AM) Basophils [0.0-1.0 0.2 % %] (07/26/14 2:32 AM) Segs-Bands # 4.8 K/CMM [1.5-8.1 K/CMM] (07/26/14 2:32 AM) Lymphocytes # 1.7 K/CMM [1.0-5.5 K/CMM] (07/26/14 2:32 AM) Monocytes # [0.0-0.8 0.3 K/CMM K/CMM] (07/26/14 2:32 AM) Medications Administered During Your Visit No data available for this section Immunizations No data available for this section
--- OUTSIDE RECORDS SUMMARY | 2019-08-07 07:16 | XMS REPORT | Summary of Care ---
Author Author [facility] Organization [facility] Address Unknown Phone Unavailable Encounter WILLIAM Hussein(KATHLEEN) [id number] Date(s): 09/25/16 - 09/25/16 [facility] [address] [place] [address]- [phone] Discharge Diagnosis: Abdominal pain Discharge Disposition: Home or Self Care Attending Physician: Sushil Santiago DO Vital Signs Most recent to 1 2 oldest [Reference Range]: Temperature Oral 98.2 DegF [96.4-99.1 DegF] (09/25/16 10:22 AM) Blood Pressure 134/82 mmHg 112/73 mmHg [90-140/60-90 mmHg] (09/25/16 1:58 PM) (09/25/16 10:22 AM) Respiratory Rate 16 BRMIN 18 BRMIN [14-20 BRMIN] (09/25/16 1:58 PM) (09/25/16 10:22 AM) Peripheral Pulse 52 bpm 61 bpm Rate [60-100 bpm] *LOW* (09/25/16 10:22 AM) (09/25/16 1:58 PM) Weight 100 kg (09/25/16 10:22 AM) Problem List Condition Effective Dates Status Health Status Informant Anxiety(Confirmed) Active Depression(Confirmed Active ) Allergies, Adverse Reactions, Alerts Substance Reaction Severity Status NKDA Active Medications Robaxin-750 oral tablet 1,500 mg=2 tab, PO, TID, X 7 day, # 42 tab, 0 Refill(s) Start Date: 09/25/16 Stop Date: 10/02/16 Status: Ordered Saline Flush 0.9% 10 mL, Route: IVP, Drug Form: INJ, Dosing Weight 100, kg, PRN, PRN Line Flush, S tart date: 09/25/16 12:39:00 [employer]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 Start Date: 09/25/16 Stop Date: 09/25/16 Status: Discontinued Results ELECTROLYTES Most recent to 1 oldest [Reference Range]: Sodium Lvl [135-145 141 mEq/L mEq/L] (09/25/16 1:10 PM) Potassium Lvl 4.0 mEq/L [3.5-5.1 mEq/L] (09/25/16 1:10 PM) Chloride Lvl [95-109 105 mEq/L mEq/L] (09/25/16 1:10 PM) CO2 [24-32 mEq/L] 33 mEq/L *HI* (09/25/16 1:10 PM) AGAP [10.0-20.0 7.0 mEq/L mEq/L] *LOW* (09/25/16 1:10 PM) CHEM PANEL Most recent to 1 oldest [Reference Range]: Creatinine Lvl 0.83 mg/dL [0.50-1.40 mg/dL] (09/25/16 1:10 PM) eGFR 135 mL/min/1.73m2 1 *NA* (09/25/16 1:10 PM) BUN [7-22 mg/dL] 11 mg/dL (09/25/16 1:10 PM) B/C Ratio [6-25] 13 (09/25/16 1:10 PM) Glucose Lvl [70-99 88 mg/dL mg/dL] (09/25/16 1:10 PM) Total Protein 7.9 g/dL [6.4-8.4 g/dL] (09/25/16 1:10 PM) Albumin Lvl [3.5-5.0 4.1 g/dL g/dL] (09/25/16 1:10 PM) Globulin [2.7-4.2 3.8 g/dL g/dL] (09/25/16 1:10 PM) A/G Ratio [0.7-1.6] 1.1 (09/25/16 1:10 PM) Calcium Lvl 9.3 mg/dL [8.5-10.5 mg/dL] (09/25/16 1:10 PM) ALT [0-65 unit/L] 22 unit/L (09/25/16 1:10 PM) AST [0-37 unit/L] 8 unit/L (09/25/16 1:10 PM) Alk Phos [39-136 80 unit/L unit/L] (09/25/16 1:10 PM) Bili Total [0.2-1.3 1.0 mg/dL mg/dL] (09/25/16 1:10 PM) Lipase Lvl [73-393 103 unit/L unit/L] (09/25/16 1:10 PM) 1Result Comment: The eGFR is calculated [...] be mul tiplied by the estimated BMI. CARDIAC ENZYMES Most recent to 1 oldest [Reference Range]: Total CK [12-191 137 unit/L unit/L] (09/25/16 1:10 PM) CK MB [0.5-3.6 1.2 ng/mL ng/mL] (09/25/16 1:10 PM) CK MB Index 0.9 [0.0-2.5] (09/25/16 1:10 PM) Troponin-I <0.02 ng/mL [0.00-0.40 ng/mL] (09/25/16 1:10 PM) URINE AND STOOL Most recent to 1 oldest [Reference Range]: UA Turbidity [Clear] Clear (09/25/16 1:10 PM) UA Color [Yellow] Yellow *NA* (09/25/16 1:10 PM) UA pH [5.0-8.0] 6.5 (09/25/16 1:10 PM) UA Spec Grav 1.020 [<=1.030] (09/25/16 1:10 PM) UA Glucose [Negative Negative mg/dL mg/dL] (09/25/16 1:10 PM) UA Blood [Negative] Negative (09/25/16 1:10 PM) UA Ketones [Negative Negative mg/dL mg/dL] *NA* (09/25/16 1:10 PM) UA Protein [Negative Negative mg/dL mg/dL] (09/25/16 1:10 PM) UA Urobilinogen 0.2 EU/dL [0.1-1.0 EU/dL] (09/25/16 1:10 PM) UA Bili [Negative] Negative *NA* (09/25/16 1:10 PM) UA Leuk Est Negative [Negative] (09/25/16 1:10 PM) UA Nitrite Negative [Negative] (09/25/16 1:10 PM) UA WBC [None Seen 0-2 /HPF /HPF] (09/25/16 1:10 PM) UA RBC [0-2] None Seen (09/25/16 1:10 PM) UA Bacteria [None Few /HPF Seen /HPF] (09/25/16 1:10 PM) UA Sq Epi [Few /LPF] Rare /LPF (09/25/16 1:10 PM) HEMATOLOGY Most recent to 1 oldest [Reference Range]: WBC [3.7-10.4 K/CMM] 6.0 K/CMM (09/25/16 1:10 PM) RBC [4.70-6.10 5.55 M/CMM M/CMM] (09/25/16 1:10 PM) Hgb [14.0-18.0 g/dL] 14.5 g/dL (09/25/16 1:10 PM) Hct [42.0-54.0 %] 44.1 % (09/25/16 1:10 PM) MCV [80.0-94.0 fL] 79.6 fL *LOW* (09/25/16 1:10 PM) MCH [27.0-31.0 pg] 26.1 pg *LOW* (09/25/16 1:10 PM) MCHC [32.0-36.0 32.8 g/dL g/dL] (09/25/16 1:10 PM) RDW [11.5-14.5 %] 14.1 % (09/25/16 1:10 PM) Platelet [133-450 196 K/CMM K/CMM] (09/25/16 1:10 PM) MPV [7.4-10.4 fL] 9.5 fL (09/25/16 1:10 PM) Segs [45.0-75.0 %] 59.7 % (09/25/16 1:10 PM) Lymphocytes 33.1 % [20.0-40.0 %] (09/25/16 1:10 PM) Monocytes [2.0-12.0 5.3 % %] (09/25/16 1:10 PM) Eosinophils [0.0-4.0 1.5 % %] (09/25/16 1:10 PM) Basophils [0.0-1.0 0.4 % %] (09/25/16 1:10 PM) Segs-Bands # 3.6 K/CMM [1.5-8.1 K/CMM] (09/25/16 1:10 PM) Lymphocytes # 2.0 K/CMM [1.0-5.5 K/CMM] (09/25/16 1:10 PM) Monocytes # [0.0-0.8 0.3 K/CMM K/CMM] (09/25/16 1:10 PM) Eosinophils # 0.1 K/CMM [0.0-0.5 K/CMM] (09/25/16 1:10 PM) Immunizations No data available for this section Procedures No data available for this section Social History Social History Type Response Smoking Status Never smoker; Exposure to Tobacco Smoke None; Cigarette Smoking Last 365 Days No; Reg Smoking Cessation Counseling No Assessment and Plan No data available for this section
--- OUTSIDE RECORDS SUMMARY | 2019-08-07 07:16 | XMS REPORT | Continuity of Care Document ---
Author Author [employer] Organization [employer] Address Unknown Phone Unavailable Care Team Providers Care Corporate Sales Manager Name Role Phone [employer] Unavailable Unavailable Problems Problem Status Onset Date Classification Date Reported Comments Source Chondrocostal junction syndrome [Tietze] 09/09/2018 03/24/2019 [place] CHEST/ABD PAIN Active 09/04/2018 [facility] Generalized anxiety disorder Active 05/24/2017 07/21/2019 [facility] Moderate episode of recurrent major depressive disorder Active 05/24/2017 07/21/2019 [facility] Discharge Diagnosis: Abdominal pain 09/25/2016 09/28/2016 [place] CHEST PAIN Active 09/25/2016 [facility] Dental calculus Active 09/21/2015 07/21/2019 [facility] Emmetropia Active 07/21/2015 07/21/2019 [facility] Decreased vision Active 07/21/2015 07/21/2019 [facility] Discharge Diagnosis: Abdominal pain 05/13/2015 05/16/2015 [facility] [place] Discharge Diagnosis: Nausea and vomiting 05/13/2015 05/16/2015 [facility] ABDOMEN PAIN/VOIMTING Active 05/13/2015 [facility] Dental infection Active 04/16/2015 07/21/2019 [facility] Dental caries extending into pulp Active 04/16/2015 07/21/2019 [facility] Alcohol abuse, in remission Active 01/28/2015 07/21/2019 [facility] Depression Active 01/28/2015 07/21/2019 [facility] ANDREW (generalized anxiety disorder) Active 01/28/2015 07/21/2019 [facility] Discharge Diagnosis: Esophageal reflux 01/26/2015 01/28/2015 [facility] Discharge Diagnosis: Chest pain 01/25/2015 01/27/2015 [place] ANXIETY Active 01/25/2015 [facility] CHEST PAINS Active 01/24/2015 [facility] Body mass index (BMI) of 30.0-30.9 in adult Active 12/04/2014 07/21/2019 [facility] Abdominal pain, epigastric Active 12/04/2014 07/21/2019 [facility] CHEST AND BACK PAIN Active 11/05/2014 [facility] ABD PAIN Active 07/26/2014 [place] Pancreatitis Active 06/12/2014 07/21/2019 [facility] Other specified anxiety disorders 03/24/2019 [place] Personal history of nicotine dependence 03/24/2019 [place] Anxiety (finding) Active Problem 03/24/2019 [facility] Depressive disorder (disorder) Active Problem 03/24/2019 [facility] RUQ abdominal pain Active 07/21/2019 [facility] Chronic abdominal pain Active 07/21/2019 [facility] Constipation, unspecified constipation type Active 07/21/2019 [facility] Chronic generalized pain Active 07/21/2019 [facility] Side pain Active 07/21/2019 [facility] Mood disorder Active 07/21/2019 [facility] Osteoarthritis of lumbar spine, unspecified spinal osteoarthritis complication status Active 07/21/2019 [facility] Osteoarthritis of thoracic spine, unspecified spinal osteoarthritis complication status Active 07/21/2019 [facility] Hyperopia with astigmatism, unspecified laterality Active 07/21/2019 [facility] Chest pain in adult Active 07/21/2019 [facility] Gastritis without bleeding, unspecified chronicity, unspecified gastritis type Active 07/21/2019 [facility] Spasm of muscle Active 07/21/2019 [facility] Patient left without being seen Active 07/21/2019 [facility] Epigastric pain Active 07/21/2019 [facility] Medications Medication Details Route Status Patient Instructions Ordering Provider Order Date Source dexlansoprazole (DEXILANT) 30 mg delayed release capsule Take 1 capsule by mouth daily. Oral Active 04/30/2019 [facility] polyethylene glycol 3350 (GLYCOLAX) 17 gram oral powder packet Mix 17 grams into 4 to 8 ounces of water, juice, soda, tea or coffee and drink as directed. Take once daily.. No Longer Active 04/30/2019 [facility] venlafaxine (EFFEXOR XR) 75 mg extended release capsule Take 1 capsule by mouth daily. Oral Active 03/19/2019 [facility] traMADol (ULTRAM) 50 mg tablet Take 2 tablets by mouth every 12 hours as needed for Pain. Oral Active 03/19/2019 [facility] amitriptyline (ELAVIL) 25 mg tablet Take 2 tablets by mouth at bedtime nightly. Oral Active 03/19/2019 [facility] traMADol (ULTRAM) 50 mg tablet Take 1 tablet by mouth every 6 hours as needed for Pain. Oral No Longer Active 03/06/2019 [facility] ibuprofen (MOTRIN) 400 mg tablet Take 1 tablet by mouth every 6 hours as needed for Pain. Oral Active 02/17/2019 [facility] amitriptyline (ELAVIL) 25 mg tablet Take 2 tablets by mouth at bedtime nightly. Oral No Longer Active 12/23/2018 [facility] dicyclomine (BENTYL) 10 mg capsule Take 1 capsule by mouth 3 times daily as needed for Pain. Oral Inactive 12/23/2018 [facility] baclofen (LIORESAL) 10 mg tablet Take 1 tablet by mouth 2 times daily. Oral Active 12/23/2018 [facility] hyoscyamine sulfate (LEVSIN) 0.125 mg tablet Take 1 tablet by mouth every 6 hours as needed for Cramping. Oral Active 12/23/2018 [facility] amitriptyline (ELAVIL) 25 mg tablet Take 1 tablet by mouth at bedtime nightly. Oral No Longer Active 11/28/2018 [facility] dexlansoprazole (DEXILANT) 30 mg delayed release capsule Take 1 capsule by mouth daily. Oral No Longer Active 11/28/2018 [facility] ciprofloxacin HCl (CIPRO) 500 mg tablet Take 1 tablet by mouth 2 times daily for 10 days. Oral No Longer Active 11/21/2018 [facility] traMADol (ULTRAM) 50 mg tablet Take 1 tablet by mouth every 6 hours as needed for Pain. Oral No Longer Active 11/21/2018 [facility] magnesium hydroxide (MILK OF MAGNESIA) 400 mg/5 mL oral suspension Take 15 mL by mouth daily as needed for up to 10 days for Constipation. Oral No Longer Active 11/21/2018 [facility] omeprazole (PRILOSEC) 20 mg delayed release capsule Take 1 capsule by mouth daily. Oral No Longer Active 10/12/2018 [facility] naproxen 500 mg oral tablet 500 mg=1 tab, PO, Q12H, PRN Pain, X 10 day, # 20 tab, 0 Refill(s) No Longer Active 09/05/2018 [facility] GI cocktail (aluminum hydroxide/magnesium hydroxide/lidocaine/simethicone) 30 mL, Route: PO, Drug Form: SUSP, Dosing Weight 100, kg, ONCE, STAT, Start date: 09/04/18 19:43:00 CDT, Stop date: 09/04/18 19:43:00 CDTNotes: G.I. Cocktail - aluminum hydroxide/magnesium hydroxide/lidocaine/simethicone Inactive 09/05/2018 [facility] Ondansetron 4 mg, 2 mL, Route: IVP, Drug form: INJ, ONCE, Dosing Weight 100, kg, Priority: STAT, Start date: 09/04/18 19:42:00 CDT, Stop date: 09/04/18 19:42:00 CDTNotes: (Same as: Zofran) MEDICATION WASTE Product Size: 4 mg Product Wasted: ___ mg Inactive 09/05/2018 [facility] Famotidine 20 mg, 2 mL, Route: IVP, Drug form: INJ, ONCE, Dosing Weight 100, kg, Priority: STAT, Start date: 09/04/18 19:42:00 CDT, Stop date: 09/04/18 19:42:00 CDTNotes: (Same as: Pepcid) Can be dilute in 5-10cc NS IVP: Slow IV push over at least 2 minutes. Inactive 09/05/2018 [facility] Sodium Chloride 0.9% (Bolus) IV 1,000 mL, 1000 ml/hr, Infuse Over: 1 hr, Route: IV, 1,000, Drug form: INJ, ONCE, Priority: STAT, Dosing Weight 100 kg, Start date: 09/04/18 19:42:00 CDT, Stop date: 09/04/18 19:42:00 CDT Inactive 09/05/2018 [facility] Saline Flush 0.9% 10 mL, Route: IVP, Drug Form: INJ, Dosing Weight 100, kg, PRN, PRN Line Flush, Start date: 09/04/18 19:42:00 CDT, Duration: 30 day, Stop date: 10/04/18 18:41:00 CSTNotes: (Same as: BD Posiflush) No Longer Active 09/05/2018 [facility] baclofen (LIORESAL) 10 mg tablet Take 1 tablet by mouth 2 times daily. Oral No Longer Active 01/23/2018 [facility] amitriptyline (ELAVIL) 25 mg tablet Take 1 tablet by mouth at bedtime nightly. Oral No Longer Active 01/23/2018 [facility] esomeprazole (NEXIUM) 20 mg delayed release capsule Take 1 capsule by mouth every morning (before breakfast). Oral No Longer Active 10/12/2017 [facility] dicyclomine (BENTYL) 10 mg capsule Take 1 capsule by mouth 3 times daily as needed for Pain. Oral No Longer Active 10/12/2017 [facility] Methocarbamol 750 MG Oral Tablet [Robaxin] 1,500 mg=2 tab, PO, TID, X 7 day, # 42 tab, 0 Refill(s) Active 09/25/2016 [facility] Saline Flush 0.9% 10 mL, Route: IVP, Drug Form: INJ, Dosing Weight 100, kg, PRN, PRN Line Flush, Start date: 09/25/16 12:39:00 SAMPLE PATTERNMAKER, Duration: 30 day, Stop date: 10/25/16 12:38:00 CSTNotes: preservative free. Inactive 09/25/2016 [facility] Esomeprazole 20 MG Enteric Coated Capsule [Nexium] 20 mg=1 cap, PO, Daily, # 30 cap, 0 Refill(s) Active 05/14/2015 [facility] Esomeprazole 20 MG Enteric Coated Capsule [Nexium] 20 mg=1 cap, PO, Daily, # 30 cap, 0 Refill(s) Active 05/14/2015 [facility] Esomeprazole 20 MG Enteric Coated Capsule [Nexium] 20 mg=1 cap, PO, Daily, # 30 cap, 0 Refill(s) Active 05/14/2015 [facility] Ondansetron 4 MG Disintegrating Tablet [Zofran] 4 mg=1 tab, PO, BID, PRN Nausea and Vomiting, Dissolve tab under tongue, X 5 day, # 10 tab, 0 Refill(s)Special Instructions: Dissolve tab under tongue Active 05/14/2015 [facility] Famotidine 20 MG Oral Tablet [Pepcid] 20 mg=1 tab, PO, BID, # 60 tab, 0 Refill(s) Active 05/14/2015 [facility] GI cocktail 30 mL, Route: PO, Drug Form: SUSP, Dosing Weight 81.818, kg, ONCE, STAT, Start date: 05/13/15 16:44:00, Stop date: 05/13/15 16:44:00Notes: G.I. Cocktail=antacid with simethicone 22.5 mL - lidocaine v iscous 7.5 mL Inactive 05/13/2015 [facility] Sodium Chloride 0.154 MEQ/ML Injectable Solution 1,000 mL, 1,000 ml/hr, Infuse Over: 1 hr, Route: IV, 1,000, Drug form: INJ, ONCE, Priority: STAT, Dosing Weight 81.818 kg, Start date: 05/13/15 16:38:00, Duration: 1 doses or times, Stop date: 05/13/15 16:38:00 Inactive 05/13/2015 [facility] Ranitidine 300 MG Oral Tablet [Zantac] 300 mg=1 tab, PO, Daily, # 30 tab, 0 Refill(s) Active 01/26/2015 [facility] GI cocktail 30 mL, Route: PO, Drug Form: SUSP, Dosing Weight 80.909, kg, ONCE, STAT, Start date: 01/26/15 4:30:00, Stop date: 01/26/15 4:30:00Notes: G.I. Cocktail=antacid with simethicone 22.5 mL - lidocaine viscous 7.5 mL Inactive 01/26/2015 [facility] Ketorolac 30 mg, 1 mL, Route: IVP, Drug form: INJ, ONCE, Dosing Weight 77.273, kg, Priority: STAT, Start date: 01/25/15 1:09:00, Stop date: 01/25/15 1:09:00Notes: (Same as:Toradol) IV bolus must be given >15 seconds. Give IM administration slowly and deeply into the muscle. Not for use > 4 days Inactive 01/25/2015 [facility] Dicyclomine Hydrochloride 10 MG Oral Capsule [Bentyl] 10 mg=1 cap, PO, QID, # 28 cap, 0 Refill(s) Active 07/26/2014 [facility] Ondansetron 4 MG Disintegrating Tablet [Zofran] 4 mg=1 tab, PO, BID, Nausea and Vomiting, Dissolve tab under tongue, # 10 tab, 0 Refill(s)Special Instructions: Dissolve tab under tongue Active 07/26/2014 [facility] Protonix 40 mg, Route: IVP, ONCE, Dosing Weight 81.818, kg, Priority: STAT, Start date: 07/26/14 3:10:00, Stop date: 07/26/14 3:10:00 Inactive 07/26/2014 [facility] Bentyl 20 mg, Route: IM, ONCE, Dosing Weight 81.818, kg, Start date: 07/26/14 3:10:00, Stop date: 07/26/14 3:10:00 Inactive 07/26/2014 [facility] Morphine 4 mg, Route: IVP, ONCE, Dosing Weight 81.818, kg, Start date: 07/26/14 3:09:00, Stop date: 07/26/14 3:09:00 Inactive 07/26/2014 [facility] Zofran 4 mg, Route: IVP, Drug form: INJ, ONCE, Dosing Weight 81.818, kg, Priority: STAT, Start date: 07/26/14 3:09:00, Stop date: 07/26/14 3:09:00 Inactive 07/26/2014 [facility] Sodium Chloride 0.154 MEQ/ML Injectable Solution 1,000 mL, 1,000 ml/hr, Infuse Over: 1 hr, Route: IV, ONCE, Priority: STAT, Dosing Weight 81.818 kg, Start date: 07/26/14 3:09:00, Duration: 1 doses or times, Stop date: 07/26/14 3:09:00 Inactive 07/26/2014 [facility] Allergies, Adverse Reactions, Alerts Substance Category Reaction Severity Reaction type Status Date Reported Comments Source Hydroxyzine Propensity to adverse reactions to drug Active 10/12/2017 [facility] No Known Medication Allergies Assertion Drug allergy [facility] Immunizations Immunization Date Given Site Status Last Updated Comments Source Influenza Vaccine, Seasonal, Injectable 11/21/2018 Not Given Deferred: Patient Refused [facility] Influenza Vaccine 09/07/2015 completed Jose Patel [facility] Influenza Vaccine 12/04/2014 completed Titi [facility] Results Order Name Results Value Reference Range Date Interpretation Comments Source 12 LEAD EKG 12 LEAD EKG FOR [facility] Test Date:2019-02-17 Pat Name: BRAD RODRIGUEZDepartment: [id number] : 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005 - 1.030 11/21/2018 [facility] POC URINE DIPSTICK, WITHOUT MICRO pH POC 6.0 5.0 - 7.0 11/21/2018 [facility] POC URINE DIPSTICK, WITHOUT MICRO Protein POC Neg Neg 11/21/2018 [facility] POC URINE DIPSTICK, WITHOUT MICRO Glucose POC Neg Neg 11/21/2018 [facility] POC URINE DIPSTICK, WITHOUT MICRO Ketone POC Neg Neg 11/21/2018 [facility] POC URINE DIPSTICK, WITHOUT MICRO Bilirubin POC Neg Neg 11/21/2018 [facility] POC URINE DIPSTICK, WITHOUT MICRO Nitrate POC Neg Neg 11/21/2018 [facility] POC URINE DIPSTICK, WITHOUT MICRO Urobilinogen POC 0.2 0.2 - 1 11/21/2018 [facility] POC URINE DIPSTICK, WITHOUT MICRO Leukocyte POC Neg Neg 11/21/2018 [facility] POC URINE DIPSTICK, WITHOUT MICRO Blood POC 1+ Neg 11/21/2018 [facility] HIV-1/HIV-2 ROUTINE SCREENING <td ID="[id number]">HIV-1/HIV-2</td><td>Negative</td><td>NEG</td><td>BT OUTPATIENT DRAW 2</td><td ID="[id number]"/> Negative NEG 10/12/2018 [facility] LIPASE <td ID="[id number]">Lipase</td><td>11</td><td>11 - 82 U/L</td><td>BT MAIN-STATION 1</td><td ID="[id number]"/> 11 11 - 82 10/12/2018 [facility] LIVER PROFILE <td ID="[id number]">Protein, Total, Serum</td><td>6.9</td><td>6.0 - 8.3 g/dL</td><td>BT MAIN-STATION 1</td><td ID="[id number]"/> 6.9 6 - 8.3 10/12/2018 [facility] LIVER PROFILE <td ID="[id number]">Albumin</td><td>4.4</td><td>4.2 - 5.5 g/dL</td><td>BT MAIN-STATION 1</td><td ID="[id number]"/> 4.4 4.2 - 5.5 10/12/2018 [facility] LIVER PROFILE <td ID="[id number]">Bilirubin, Total</td><td>1.1</td><td>0.2 - 1.2 mg/dL</td><td>BT MAIN-STATION 1</td><td ID="[id number]"/> 1.1 0.2 - 1.2 10/12/2018 [facility] LIVER PROFILE <td ID="[id number]">Alkaline Phosphatase, S</td><td>59</td><td>34 - 104 U/L</td><td>BT MAIN-STATION 1</td><td ID="[id number]"/> 59 34 - 104 10/12/2018 [facility] LIVER PROFILE <td ID="[id number]">AST (SGOT)</td><td><span style="flagData">12</span><span style="flagData"> (L)</span></td><td>13 - 39 U/L</td><td>BT MAIN-STATION 1</td><td ID="[id number]"/> 12 13 - 39 10/12/2018 [facility] LIVER PROFILE <td ID="[id number]">ALT</td><td>12</td><td>7 - 52 U/L</td><td>BT MAIN-STATION 1</td><td ID="[id number]"/> 12 7 - 52 10/12/2018 [facility] LIVER PROFILE <td ID="[id number]">D Bilirubin</td><td>0.2</td><td>0.0 - 0.2 mg/dL</td><td>BT MAIN-STATION 1</td><td ID="[id number]"/> 0.2 0 - 0.2 10/12/2018 [facility] LIVER PROFILE Lab Interpretation Abnormal 10/12/2018 [facility] CBC/DIFF <td ID="[id number]">WBC</td><td><span style="flagData">4.4</span><span style="flagData"> (L)</span></td><td>4.5 - 12.0 K/uL</td><td>BT MAIN-STATION 2</td><td ID="[id number]"/> 4.4 4.5 - 12 10/12/2018 [facility] CBC/DIFF <td ID="[id number]">RBC</td><td>5.25</td><td>4.60 - 6.20 M/uL</td><td>BT MAIN-STATION 2</td><td ID="[id number]"/> 5.25 4.60 - 6.20 10/12/2018 [facility] CBC/DIFF <td ID="[id number]">Hemoglobin</td><td><span style="flagData">13.6</span><span style="flagData"> (L)</span></td><td>14.0 - 18.0 g/dL</td><td>BT MAIN-STATION 2</td><td ID="[id number]"/> 13.6 14 - 18 10/12/2018 [facility] CBC/DIFF <td ID="[id number]">Hematocrit</td><td>42.1</td><td>40.0 - 54.0 %</td><td>BT MAIN-STATION 2</td><td ID="[id number]"/> 42.1 40 - 54 10/12/2018 [facility] CBC/DIFF <td ID="[id number]">MCV</td><td><span style="flagData">80</span><span style="flagData"> (L)</span></td><td>82 - 92 fL</td><td>BT MAIN-STATION 2</td><td ID="[id number]"/> 80 82 - 92 10/12/2018 [facility] CBC/DIFF <td ID="[id number]">MCH</td><td><span style="flagData">25.9</span><span style="flagData"> (L)</span></td><td>27.0 - 31.0 pg</td><td>BT MAIN-STATION 2</td><td ID="[id number]"/> 25.9 27 - 31 10/12/2018 [facility] CBC/DIFF <td ID="[id number]">MCHC</td><td>32.3</td><td>32.0 - 36.0 g/dL</td><td>BT MAIN-STATION 2</td><td ID="[id number]"/> 32.3 32 - 36 10/12/2018 [facility] CBC/DIFF <td ID="[id number]">RDW</td><td>39.2</td><td>35.1 - 43.9 fL</td><td>BT MAIN-STATION 2</td><td ID="[id number]"/> 39.2 35.1 - 43.9 10/12/2018 [facility] CBC/DIFF <td ID="[id number]">Platelets</td><td>207</td><td>150 - 400 K/uL</td><td>BT MAIN-STATION 2</td><td ID="[id number]"/> 207 150 - 400 10/12/2018 [facility] CBC/DIFF <td ID="[id number]">Mean Platelet Volume</td><td>12.1</td><td>9.4 - 12.4 fL</td><td>BT MAIN-STATION 2</td><td ID="[id number]"/> 12.1 9.4 - 12.4 10/12/2018 [facility] CBC/DIFF Percent NRBC 0.0 10/12/2018 [facility] CBC/DIFF Absolute NRBC 0.00 10/12/2018 [facility] CBC/DIFF <td ID="[id number]">Neutrophils</td><td>58.3</td><td>34.0 - 67.9 %</td><td>BT MAIN-STATION 2</td><td ID="[id number]"/> 58.3 34 - 67.9 10/12/2018 [facility] CBC/DIFF <td ID="[id number]">Lymphs</td><td>35.1</td><td>21.8 - 50.0 %</td><td>BT MAIN-STATION 2</td><td ID="[id number]"/> 35.1 21.8 - 50 10/12/2018 [facility] CBC/DIFF <td ID="[id number]">Monocytes</td><td><span style="flagData">5.2</span><span style="flagData"> (L)</span></td><td>5.3 - 12.0 %</td><td>BT MAIN-STATION 2</td><td ID="[id number]"/> 5.2 5.3 - 12 10/12/2018 [facility] CBC/DIFF <td ID="[id number]">Eos</td><td>0.9</td><td>0.8 - 5.0 %</td><td>BT MAIN-STATION 2</td><td ID="[id number]"/> 0.9 0.8 - 5 10/12/2018 [facility] CBC/DIFF <td ID="[id number]">Basos</td><td>0.5</td><td>0.2 - 1.2 %</td><td>BT MAIN-STATION 2</td><td ID="[id number]"/> 0.5 0.2 - 1.2 10/12/2018 [facility] CBC/DIFF Immature Granulocytes 0.0 0.0 - 0.5 10/12/2018 [facility] CBC/DIFF Neutrophils (Absolute) 2.57 1.78 - 5.36 10/12/2018 [facility] CBC/DIFF Lymphs (Absolute) 1.55 1.32 - 3.57 10/12/2018 [facility] CBC/DIFF Monocytes(Absolute) 0.23 0.3 - 0.82 10/12/2018 [facility] CBC/DIFF Eos (Absolute) 0.04 0.04 - 0.54 10/12/2018 [facility] CBC/DIFF Baso (Absolute) 0.02 0.01 - 0.08 10/12/2018 [facility] CBC/DIFF Immature Grans (Abs) 0.00 0 - 0.03 10/12/2018 [facility] CBC/DIFF Lab Interpretation Abnormal 10/12/2018 [facility] UA CHEMISTRIES <td ID="[id number]">Color</td><td>Yellow</td><td/><td>BT MAIN-STATION 3</td><td ID="[id number]"/> Yellow 10/12/2018 [facility] UA CHEMISTRIES Clarity Clear 10/12/2018 [facility] UA CHEMISTRIES <td ID="[id number]">Specific Keller</td><td>1.026</td><td>1.001 - 1.035</td><td>BT MAIN-STATION 3</td><td ID="[id number]"/> 1.026 1.001 - 1.035 10/12/2018 [facility] UA CHEMISTRIES <td ID="[id number]">pH</td><td>7.0</td><td>5 - 8</td><td>BT MAIN-STATION 3</td><td ID="[id number]"/> 7.0 5 - 8 10/12/2018 [facility] CHEMISTRIES <td ID="[id number]">Protein</td><td><span style="flagData">1+</span><span style="flagData"> (A)</span></td><td>NEG</td><td>BT MAIN-STATION 3</td><td ID=&quot ;[id number]"/> 1+ NEG 10/12/2018 [facility] UA CHEMISTRIES <td ID="[id number]">Glucose</td><td>Negative</td><td>NEG</td><td>BT MAIN-STATION 3</td><td ID="[id number]"/> Negative NEG 10/12/2018 [facility] UA CHEMISTRIES <td ID="[id number]">Ketones</td><td>Negative</td><td>NEG</td><td>BT MAIN-STATION 3</td><td ID="[id number]"/> Negative NEG 10/12/2018 [facility] UA CHEMISTRIES <td ID="[id number]">Bilirubin</td><td>Negative</td><td>NEG</td><td>BT MAIN-STATION 3</td><td ID="[id number]"/> Negative NEG 10/12/2018 [facility] UA CHEMISTRIES <td ID="[id number]">Nitrate</td><td>Negative</td><td>NEG</td><td>BT MAIN-STATION 3</td><td ID="[id number]"/> Negative NEG 10/12/2018 [facility] UA CHEMISTRIES <td ID="[id number]">Urobilinogen,Semi- Qn</td><td><1.0</td><td>0.2 - 1.0 EU/dL</td><td>BT MAIN-STATION 3</td><td ID="[id number]"/> <1.0 0.2 - 1 10/12/2018 [facility] UA CHEMISTRIES <td ID="[id number]">Leukocyte</td><td>Negative</td><td>NEG</td><td>BT MAIN-STATION 3</td><td ID="[id number]"/> Negative NEG 10/12/2018 [facility] UA CHEMISTRIES Occult Blood Negative NEG 10/12/2018 [facility] UA CHEMISTRIES RBC 2 0 - 4 10/12/2018 [facility] UA CHEMISTRIES WBC 1 0 - 5 10/12/2018 [facility] UA CHEMISTRIES Epithelial Cell 1 /HPF 10/12/2018 [facility] UA CHEMISTRIES Lab Interpretation Abnormal 10/12/2018 [facility] BMP POC CO2 POC 26 21 - 32 10/12/2018 [facility] BMP POC Chloride POC 103 98 - 107 10/12/2018 [facility] POC Potassium POC 3.8 3.5 - 5.1 10/12/2018 [facility] POC Sodium POC 141 136 - 145 10/12/2018 [facility] POC <td ID="[id number]">Glucose POC</td><td><span style="flagData">117</span><span style="flagData"> (H)</span></td><td>74 - 106 mg/dL</td><td>BT MAIN-STATION 1</td><td ID="[id number]"/> 117 74 - 106 10/12/2018 [facility] POC Urea Nitrogen POC 14 7 - 18 10/12/2018 [facility] POC Creatinine POC 0.8 0.6 - 1.3 10/12/2018 [facility] POC Calcium Ionized POC 1.22 1.15 - 1.29 10/12/2018 [facility] POC Hemoglobin POC 15.6 14 - 18 10/12/2018 [facility] POC Hematocrit POC 46.0 40 - 54 10/12/2018 [facility] POC GFR, Estimated >60 mL/min/1.73 m2 10/12/2018 [facility] POC GFR, Estim, Afr-Am >60 mL/min/1.73 m2 10/12/2018 [facility] POC Lab Interpretation Abnormal 10/12/2018 [facility] CARDIAC ENZYMES Troponin-I <0.02 0.00 - 0.40 09/05/2018 [facility] CHEM PANEL eGFR 121 09/05/2018 Result Comment: The eGFR is calculated using the [...] from the National Kidney Disease Education Program (NKDEP) which additionally recommends that when the eGFR is used in patients with extremes of body mass index for purposes of drug dosing, the eGFR should be multiplied by the estimated BMI. [place] CHEM PANEL Bili Total 0.6 0.2 - 1.3 09/05/2018 [facility] Potassium Lvl 3.6 3.5 - 5.1 09/05/2018 [facility] Calcium Lvl 9.0 8.5 - 10.5 09/05/2018 [facility] Total Protein 7.4 6.4 - 8.4 09/05/2018 [place] CHEM PANEL ALT 24 0 - 65 09/05/2018 [place] CHEM PANEL CO2 28 24 - 32 09/05/2018 [facility] [place] [facility] Sodium Lvl 141 135 - 145 09/05/2018 [facility] CHEM PANEL Albumin Lvl 3.9 3.5 - 5.0 09/05/2018 [facility] CHEM PANEL Chloride Lvl 106 95 - 109 09/05/2018 [facility] CHEM PANEL Alk Phos 70 39 - 136 09/05/2018 [facility] [place] [facility] AST 18 0 - 37 09/05/2018 [facility] CHEM PANEL Creatinine Lvl 0.95 0.50 - 1.40 09/05/2018 [facility] CHEM PANEL BUN 17 7 - 22 09/05/2018 [facility] [place] [facility] Glucose Lvl 116 70 - 99 09/05/2018 [facility] CHEM PANEL AGAP 10.6 10.0 - 20.0 09/05/2018 [facility] CHEM PANEL B/C Ratio 18 6 - 25 09/05/2018 [facility] CHEM PANEL A/G Ratio 1.1 0.7 - 1.6 09/05/2018 [facility] Globulin 3.5 2.7 - 4.2 09/05/2018 [facility] CHEM PANEL Lipase Lvl 145 73 - 393 09/05/2018 [facility] HEMATOLOGY Hct 40.7 42.0 - 54.0 09/05/2018 [facility] HEMATOLOGY MCV 78.9 80.0 - 94.0 09/05/2018 [facility] HEMATOLOGY RBC 5.15 4.70 - 6.10 09/05/2018 [facility] HEMATOLOGY Hgb 13.7 14.0 - 18.0 09/05/2018 [facility] HEMATOLOGY Platelet 197 133 - 450 09/05/2018 [facility] RDW 14.2 11.5 - 14.5 09/05/2018 [facility] MPV 9.3 7.4 - 10.4 09/05/2018 [facility] MCH 26.6 27.0 - 31.0 09/05/2018 [facility] MCHC 33.8 32.0 - 36.0 09/05/2018 [facility] WBC 5.5 3.7 - 10.4 09/05/2018 [facility] HEMATOLOGY Basophils 0.5 0.0 - 1.0 09/05/2018 [facility] HEMATOLOGY Eosinophils 1.6 0.0 - 4.0 09/05/2018 [facility] Lymphocytes 42.4 20.0 - 40.0 09/05/2018 [facility] Monocytes 4.7 2.0 - 12.0 09/05/2018 [facility] Segs 50.8 45.0 - 75.0 09/05/2018 [facility] Microcyte 1+ *ABN* (09/04/18 8:12 PM) None Seen 09/05/2018 [facility] Monocytes # 0.3 0.0 - 0.8 09/05/2018 [facility] Eosinophils # 0.1 0.0 - 0.5 09/05/2018 [facility] Neutrophils # 2.8 1.5 - 8.1 09/05/2018 [facility] Lymphocytes # 2.3 1.0 - 5.5 09/05/2018 [facility] Serum or plasma lipase measurement (enzymatic activity/volume) 11 8 - 78 06/02/2018 [facility] CARDIAC ENZYMES CK-MB INDEX 0.9 0.0 - 2.5 09/25/2016 [facility] CARDIAC ENZYMES Total CK 137 12 - 191 09/25/2016 [facility] CARDIAC ENZYMES Troponin-I <0.02 0.00 - 0.40 09/25/2016 [facility] CARDIAC ENZYMES CK MB 1.2 0.5 - 3.6 09/25/2016 [facility] CHEM PANEL Lipase Lvl 103 73 - 393 09/25/2016 [facility] CHEM PANEL eGFR 135 09/25/2016 Result Comment: The eGFR is calculated using the [...] from the National Kidney Disease Education Program (NKDEP) which additionally recommends that when the eGFR is used in patients with extremes of body mass index for purposes of drug dosing, the eGFR should be multiplied by the estimated BMI. [place] CHEM PANEL Albumin Lvl 4.1 3.5 - 5.0 09/25/2016 [facility] PAN[facility] ALANINE AMINOTRANSFERASE 22 0 - 65 09/25/2016 [place] CHEM PANEL Glucose Lvl 88 70 - 99 09/25/2016 [place] CHEM PANEL Alk Phos 80 39 - 136 09/25/2016 [place] CHEM PANEL Potassium Lvl 4.0 3.5 - 5.1 09/25/2016 [place] CHEM PANEL Chloride Lvl 105 95 - 109 09/25/2016 [place] CHEM PANEL CO2 33 24 - 32 09/25/2016 [place] CHEM PANEL Calcium Lvl 9.3 8.5 - 10.5 09/25/2016 [place] CHEM PANEL Creatinine Lvl 0.83 0.50 - 1.40 09/25/2016 [place] CHEM PANEL Sodium Lvl 141 135 - 145 09/25/2016 [place] CHEM PANEL BUN 11 7 - 22 09/25/2016 [place] CHEM PANEL ASPARTATE TRANSAMINASE 8 0 - 37 09/25/2016 [place] CHEM PANEL AGAP 7.0 10.0 - 20.0 09/25/2016 [place] CHEM PANEL Bili Total 1.0 0.2 - 1.3 09/25/2016 [place] CHEM PANEL Total Protein 7.9 6.4 - 8.4 09/25/2016 [place] CHEM PANEL B/C Ratio 13 6 - 25 09/25/2016 [place] CHEM PANEL Globulin 3.8 2.7 - 4.2 09/25/2016 [place] CHEM PANEL A/G Ratio 1.1 0.7 - 1.6 09/25/2016 [facility] [place] HEMATOLOGY Eosinophils 1.5 0.0 - 4.0 09/25/2016 [facility] HEMATOLOGY Monocytes # 0.3 0.0 - 0.8 09/25/2016 [facility] HEMATOLOGY Lymphocytes # 2.0 1.0 - 5.5 09/25/2016 [facility] Segs-Bands # 3.6 1.5 - 8.1 09/25/2016 [facility] HEMATOLOGY Basophils 0.4 0.0 - 1.0 09/25/2016 [facility] HEMATOLOGY Eosinophils # 0.1 0.0 - 0.5 09/25/2016 [facility] Segs 59.7 45.0 - 75.0 09/25/2016 [facility] Monocytes 5.3 2.0 - 12.0 09/25/2016 [facility] Lymphocytes 33.1 20.0 - 40.0 09/25/2016 [facility] Platelet 196 133 - 450 09/25/2016 [facility] MPV 9.5 7.4 - 10.4 09/25/2016 [facility] MCHC 32.8 32.0 - 36.0 09/25/2016 [facility] HEMATOLOGY RDW 14.1 11.5 - 14.5 09/25/2016 [facility] HEMATOLOGY WBC X 10x3 6.0 3.7 - 10.4 09/25/2016 [facility] MCH 26.1 27.0 - 31.0 09/25/2016 [facility] MCV 79.6 80.0 - 94.0 09/25/2016 [facility] Hct 44.1 42.0 - 54.0 09/25/2016 [facility] Hgb 14.5 14.0 - 18.0 09/25/2016 [facility] RBC X 10x6 5.55 4.70 - 6.10 09/25/2016 [facility] URINE AND STOOL UA Sq Epi Rare /LPF Few /LPF 09/25/2016 [facility] URINE AND STOOL UA WBC 0-2 /HPF None Seen /HPF 09/25/2016 [facility] URINE AND STOOL UA RBC None Seen (09/25/16 1:10 PM) 0 - 2 09/25/2016 [facility] URINE AND STOOL UA Bacteria Few /HPF None Seen /HPF 09/25/2016 [facility] URINE AND STOOL UA Leuk Est Negative (09/25/16 1:10 PM) Negative 09/25/2016 [place] URINE AND STOOL UA Nitrite Negative (09/25/16 1:10 PM) Negative 09/25/2016 [place] URINE AND STOOL UA Ketones Negative mg/dL Negative mg/dL 09/25/2016 [place] URINE AND STOOL UA Urobilinogen 0.2 0.1 - 1.0 09/25/2016 [facility] URINE AND STOOL UA Protein Negative mg/dL Negative mg/dL 09/25/2016 [place] URINE AND STOOL UA Bili Negative *NA* (09/25/16 1:10 PM) Negative 09/25/2016 [facility] URINE AND STOOL UA Glucose Negative mg/dL Negative mg/dL 09/25/2016 [facility] URINE AND STOOL UA pH 6.5 5.0 - 8.0 09/25/2016 [facility] URINE AND STOOL UA Blood Negative (09/25/16 1:10 PM) Negative 09/25/2016 [facility] URINE AND STOOL UA Color Yellow *NA* (09/25/16 1:10 PM) Yellow 09/25/2016 [facility] URINE AND STOOL UA Turbidity Clear (09/25/16 1:10 PM) Clear 09/25/2016 [facility] URINE AND STOOL UA Spec Grav 1.020 <=1.030 09/25/2016 [facility] CHEM PANEL Bili Direct 0.1 0.0 - 0.3 05/13/2015 [facility] CHEM PANEL Bili Total 1.2 0.2 - 1.3 05/13/2015 [facility] CHEM PANEL Alk Phos 70 39 - 136 05/13/2015 [facility] CHEM PANEL AST 33 0 - 37 05/13/2015 [facility] CHEM PANEL Albumin Lvl 4.2 3.5 - 5.0 05/13/2015 [facility] CHEM PANEL ALT 31 0 - 65 05/13/2015 [facility] CHEM PANEL Total Protein 8.3 6.4 - 8.4 05/13/2015 [facility] CHEM PANEL A/G Ratio 1.0 0.7 - 1.6 05/13/2015 [facility] CHEM PANEL Bili Indirect 1.1 0.0 - 1.0 05/13/2015 [facility] CHEM PANEL Globulin 4.1 2.0 - 4.0 05/13/2015 [facility] CHEM PANEL Lipase Lvl 117 73 - 393 05/13/2015 [facility] CHEM PANEL Magnesium Lvl 2.3 1.8 - 2.4 05/13/2015 [facility] CHEM PANEL Phosphorus 3.8 2.5 - 4.5 05/13/2015 [facility] CHEM PANEL Lactic Acid Lvl 0.5 0.5 - 2.2 05/13/2015 [facility] ELECTROLYTES AGAP 11.8 10.0 - 20.0 05/13/2015 [facility] ELECTROLYTES eGFR 138 05/13/2015 <sup>2</sup>Result Comment: The eGFR is calculated using the CKD-EPI formula. In most young, healthy individuals the eGFR will be >90 mL/min/1.73m2. The eGFR declines with age. An eGFR of 60-89 may be normal in some populations, particularly the elderly, for whom the CKD-EPI formula has not been extensively validated. Use of the eGFR is not recommended in the following populations:& lt;br/>
Individuals with unstable creatinine concentrations, including patients and those with serious co-morbid conditions.

Patients with extremes in muscle mass or diet.

The data above are obtained from the National Kidney Disease Education Program (NKDEP) which additionally recommends that when the eGFR is used in patients with extremes of body mass index for purposes of drug dosing, the eGFR should be multiplied by the estimated BMI. [facility] ELECTROLYTES Chloride Lvl 102 95 - 109 05/13/2015 [facility] ELECTROLYTES Potassium Lvl 4.8 3.5 - 5.1 05/13/2015 <sup>1</sup>Result Comment: Specimen Moderately Hemolyzed. [facility] ELECTROLYTES BUN 13 7 - 22 05/13/2015 [facility] ELECTROLYTES Glucose Lvl 92 70 - 99 05/13/2015 <sup>3</sup>Interpretive Data: Adult reference range values reflect the clinical guidelines
of the [place] [employer]. [facility] ELECTROLYTES Calcium Lvl 9.5 8.5 - 10.5 05/13/2015 [facility] ELECTROLYTES CO2 29 24 - 32 05/13/2015 [facility] ELECTROLYTES Sodium Lvl 138 135 - 145 05/13/2015 [facility] ELECTROLYTES Creatinine Lvl 0.8 0.5 - 1.4 05/13/2015 [facility] HEMATOLOGY Monocytes # 0.3 0.0 - 0.8 05/13/2015 [facility] HEMATOLOGY Segs-Bands # 4.0 1.5 - 8.1 05/13/2015 [facility] HEMATOLOGY Lymphocytes # 1.6 1.0 - 5.5 05/13/2015 [facility] HEMATOLOGY Basophils 0.3 0.0 - 1.0 05/13/2015 [facility] HEMATOLOGY Eosinophils 0.5 0.0 - 4.0 05/13/2015 [facility] HEMATOLOGY Monocytes 4.5 2.0 - 12.0 05/13/2015 [facility] HEMATOLOGY Lymphocytes 27.2 20.0 - 40.0 05/13/2015 [facility] HEMATOLOGY Segs 67.5 45.0 - 75.0 05/13/2015 [facility] HEMATOLOGY RBC 5.35 4.70 - 6.10 05/13/2015 [facility] HEMATOLOGY WBC 5.9 3.7 - 10.4 05/13/2015 [facility] HEMATOLOGY MCH 25.8 27.0 - 31.0 05/13/2015 [facility] HEMATOLOGY Hct 43.7 42.0 - 54.0 05/13/2015 [facility] HEMATOLOGY Hgb 13.8 14.0 - 18.0 05/13/2015 [facility] HEMATOLOGY MPV 10.1 7.4 - 10.4 05/13/2015 [facility] HEMATOLOGY MCV 81.7 80.0 - 94.0 05/13/2015 [facility] HEMATOLOGY RDW 14.0 11.5 - 14.5 05/13/2015 [facility] HEMATOLOGY MCHC 31.5 32.0 - 36.0 05/13/2015 [facility] HEMATOLOGY Platelet 208 133 - 450 05/13/2015 [facility] IMMUNOLOGY CDC HIV 4th GEN Negative (05/13/15 5:20 PM) Negative 05/13/2015 [facility] CARDIAC ENZYMES CK MB <0.5 0.5 - 3.6 01/25/2015 [facility] CARDIAC ENZYMES CK MB Index <0.5 0.0 - 2.5 01/25/2015 [facility] CARDIAC ENZYMES Troponin-I <0.02 0.00 - 0.40 01/25/2015 [facility] CARDIAC ENZYMES Total CK 102 12 - 191 01/25/2015 [facility] CARDIAC ENZYMES CK MB Index 0.8 0.0 - 2.5 01/25/2015 [facility] CARDIAC ENZYMES CK MB 0.8 0.5 - 3.6 01/25/2015 [facility] CARDIAC ENZYMES Troponin-I <0.02 0.00 - 0.40 01/25/2015 [facility] CARDIAC ENZYMES Total CK 106 12 - 191 01/25/2015 [facility] CHEM PANEL Globulin 3.5 2.0 - 4.0 01/25/2015 [facility] CHEM PANEL A/G Ratio 1.1 0.7 - 1.6 01/25/2015 [facility] CHEM PANEL AGAP 9.7 10.0 - 20.0 01/25/2015 [facility] CHEM PANEL B/C Ratio 10 6 - 25 01/25/2015 [facility] CHEM PANEL BUN 12 7 - 22 01/25/2015 [facility] CHEM PANEL Glucose Lvl 94 70 - 99 01/25/2015 <sup>2</sup>Interpretive Data: Adult reference range values reflect the clinical guidelines
of the [place] [employer]. [facility] CHEM PANEL Total Protein 7.4 6.4 - 8.4 01/25/2015 [facility] CHEM PANEL ALT 19 0 - 65 01/25/2015 [facility] CHEM PANEL CO2 29 24 - 32 01/25/2015 [facility] CHEM PANEL Bili Total 0.9 0.2 - 1.3 01/25/2015 [facility] CHEM PANEL Alk Phos 66 39 - 136 01/25/2015 [facility] CHEM PANEL AST 11 0 - 37 01/25/2015 [facility] CHEM PANEL Calcium Lvl 9.4 8.5 - 10.5 01/25/2015 [facility] CHEM PANEL Albumin Lvl 3.9 3.5 - 5.0 01/25/2015 [facility] CHEM PANEL Potassium Lvl 3.7 3.5 - 5.1 01/25/2015 [facility] CHEM PANEL Chloride Lvl 104 95 - 109 01/25/2015 [facility] CHEM PANEL Creatinine Lvl 1.2 0.5 - 1.4 01/25/2015 [facility] CHEM PANEL Sodium Lvl 139 135 - 145 01/25/2015 [facility] CHEM PANEL eGFR 93 01/25/2015 <sup>1</sup>Result Comment: The eGFR is calculated using the CKD-EPI formula. In most young, healthy individuals the eGFR will be >90 mL/min/1.73m2. The eGFR declines with age. An eGFR of 60-89 may be normal in some populations, particularly the elderly, for whom the CKD-EPI formula has not been extensively validated. Use of the eGFR is not recommended in the following populations:& lt;br/>
Individuals with unstable creatinine concentrations, including patients and those with serious co-morbid conditions.

Patients with extremes in muscle mass or diet.

The data above are obtained from the National Kidney Disease Education Program (NKDEP) which additionally recommends that when the eGFR is used in patients with extremes of body mass index for purposes of drug dosing, the eGFR should be multiplied by the estimated BMI. [facility] HEMATOLOGY RBC 5.12 4.70 - 6.10 01/25/2015 [facility] HEMATOLOGY MCV 82.8 80.0 - 94.0 01/25/2015 [facility] Hct 42.4 42.0 - 54.0 01/25/[address] [facility] MCHC 32.0 32.0 - 36.0 01/25/[address] [facility] MCH 26.5 27.0 - 31.0 01/25/[address] [facility] RDW 13.5 11.5 - 14.5 01/25/[address] [facility] Hgb 13.5 14.0 - 18.0 01/25/[address] [facility] WBC 7.6 3.7 - 10.4 01/25/[address] [facility] MPV 9.6 7.4 - 10.4 01/25/[address] [facility] Platelet 186 133 - 450 01/25/2015 [facility] HEMATOLOGY Monocytes 4.7 2.0 - 12.0 01/25/[address] [facility] Lymphocytes 22.8 20.0 - 40.0 01/25/2015 [facility] HEMATOLOGY Basophils 0.3 0.0 - 1.0 01/25/2015 [facility] HEMATOLOGY Eosinophils 0.4 0.0 - 4.0 01/25/2015 [facility] HEMATOLOGY Lymphocytes # 1.7 1.0 - 5.5 01/25/2015 [facility] HEMATOLOGY Segs-Bands # 5.5 1.5 - 8.1 01/25/2015 [facility] HEMATOLOGY Monocytes # 0.4 0.0 - 0.8 01/25/2015 [facility] HEMATOLOGY Segs 71.8 45.0 - 75.0 01/25/2015 [facility] CHEM PANEL Lipase Lvl 143 73 - 393 07/26/2014 [facility] CHEM PANEL Amylase Lvl 75 25 - 115 07/26/2014 [facility] CHEM PANEL A/G Ratio 1.1 0.7 - 1.6 07/26/2014 [facility] CHEM PANEL AGAP 9.5 10.0 - 20.0 07/26/2014 [facility] CHEM PANEL Globulin 3.5 2.0 - 4.0 07/26/2014 [facility] CHEM PANEL B/C Ratio 14 6 - 25 07/26/2014 [facility] CHEM PANEL eGFR 116 07/26/2014 <sup>1</sup>Result Comment: The eGFR is calculated using the CKD-EPI formula. In most young, healthy individuals the eGFR will be >90 mL/min/1.73m2. The eGFR declines with age. An eGFR of 60-89 may be normal in some populations, particularly the elderly, for whom the CKD-EPI formula has not been extensively validated. Use of the eGFR is not recommended in the following populations:& lt;br/>
Individuals with unstable creatinine concentrations, including patients and those with serious co-morbid conditions.

Patients with extremes in muscle mass or diet.

The data above are obtained from the National Kidney Disease Education Program (NKDEP) which additionally recommends that when the eGFR is used in patients with extremes of body mass index for purposes of drug dosing, the eGFR should be multiplied by the estimated BMI. [facility] CHEM PANEL Calcium Lvl 8.8 8.5 - 10.5 07/26/2014 [facility] CHEM PANEL Total Protein 7.5 6.4 - 8.4 07/26/2014 [facility] CHEM PANEL Potassium Lvl 3.5 3.5 - 5.1 07/26/2014 [facility] CHEM PANEL Chloride Lvl 101 95 - 109 07/26/2014 [facility] CHEM PANEL CO2 31 24 - 32 07/26/2014 [facility] CHEM PANEL Sodium Lvl 138 135 - 145 07/26/2014 [facility] CHEM PANEL Bili Total 0.7 0.2 - 1.3 07/26/2014 [facility] CHEM PANEL Alk Phos 73 39 - 136 07/26/2014 [facility] CHEM PANEL Creatinine Lvl 1.0 0.5 - 1.4 07/26/2014 [facility] CHEM PANEL BUN 14 7 - 22 07/26/2014 [facility] CHEM PANEL Glucose Lvl 142 70 - 99 07/26/2014 <sup>2</sup>Interpretive Data: Adult reference range values reflect the clinical guidelines
of the [place] [employer]. [facility] CHEM PANEL Albumin Lvl 4.0 3.5 - 5.0 07/26/2014 [facility] CHEM PANEL AST 16 0 - 37 07/26/2014 [facility] CHEM PANEL ALT 33 0 - 65 07/26/2014 [facility] HEMATOLOGY Segs 70.1 45.0 - 75.0 07/26/2014 [facility] HEMATOLOGY Lymphocytes 24.7 20.0 - 40.0 07/26/2014 [facility] HEMATOLOGY Monocytes 4.4 2.0 - 12.0 07/26/2014 [facility] HEMATOLOGY Basophils 0.2 0.0 - 1.0 07/26/2014 [facility] HEMATOLOGY Eosinophils 0.6 0.0 - 4.0 07/26/2014 [facility] Lymphocytes # 1.7 1.0 - 5.5 07/26/2014 [facility] HEMATOLOGY Segs-Bands # 4.8 1.5 - 8.1 07/26/2014 [facility] Monocytes # 0.3 0.0 - 0.8 07/26/2014 [facility] HEMATOLOGY WBC 6.8 3.7 - 10.4 07/26/2014 [facility] HEMATOLOGY MCV 84.9 80.0 - 94.0 07/26/2014 [facility] MCH 28.5 27.0 - 31.0 07/26/2014 [facility] Hct 41.9 42.0 - 54.0 07/26/2014 [facility] MPV 10.0 7.4 - 10.4 07/26/2014 [facility] RBC 4.94 4.70 - 6.10 07/26/2014 [facility] Hgb 14.1 14.0 - 18.0 07/26/[address] [facility] MCHC 33.6 32.0 - 36.0 07/26/2014 [facility] HEMATOLOGY RDW 13.5 11.5 - 14.5 07/26/2014 [facility] HEMATOLOGY Platelet 209 133 - 450 07/26/2014 [facility] IMMUNOLOGY CDC HIV 4th GEN Negative (07/26/14 2:32 AM) Negative 07/26/2014 [facility] URINE AND STOOL UA Color Ltyellow 07/26/2014 [facility] URINE AND STOOL UA Urobilinogen <=1.0 mg/dL 0.1 - 1.0 07/26/2014 [facility] URINE AND STOOL UA Sq Epi None Seen 07/26/2014 [facility] URINE AND STOOL UA Spec Grav 1.021 <=1.030 07/26/2014 [facility] URINE AND STOOL UA Bacteria Occasional /HPF None Seen /HPF 07/26/2014 [facility] URINE AND STOOL UA Mucus Few /LPF None Seen /LPF 07/26/2014 [facility] URINE AND STOOL UA WBC 6 0 - 5 07/26/2014 [facility] URINE AND STOOL UA RBC 2 0 - 2 07/26/2014 [facility] URINE AND STOOL UA Leuk Est Trace *ABN* (07/26/14 2:27 AM) Negative 07/26/2014 [facility] URINE AND STOOL UA Blood Negative (07/26/14 2:27 AM) Negative 07/26/2014 [facility] URINE AND STOOL UA Nitrite Negative (07/26/14 2:27 AM) Negative 07/26/2014 [facility] URINE AND STOOL UA Ketones Negative mg/dL Negative mg/dL 07/26/2014 [facility] URINE AND STOOL UA Protein Negative mg/dL Negative mg/dL 07/26/2014 [facility] URINE AND STOOL UA Glucose Negative mg/dL Negative mg/dL 07/26/2014 [facility] URINE AND STOOL UA pH 6.0 5.0 - 8.0 07/26/2014 [facility] URINE AND STOOL UA Bili Negative *NA* (07/26/14 2:27 AM) Negative 07/26/2014 [facility] URINE AND STOOL UA Turbidity Clear (07/26/14 2:27 AM) Clear 07/26/2014 [facility] Pathology Reports No Data Provided for This Section Diagnostic Reports Report Value Date Source XRAY CHEST 2 VIEWS IMPRESSION: No acute intrathoracic abnormality. Signed By: Warren Denney MD, 02/17/2019 5:19 PM EXAM: CHEST X-RAY 2 VIEWS (PA AND LATERAL) DATE: 02/17/2019 5:13 PM CLINICAL INDICATION: chest pain COMPARISON: CXR 01/06/2015 TECHNIQUE: PA and lateral views of the chest were obtained. Lines/tubes:None. Lungs/Pleura:No consolidations or cavitations.No pleural effusionsor pneumothorax. Heart and mediastinum:The cardiac silhouette is within normal limitsin caliber. Bones:The thoracic skeleton is unremarkable. Soft tissues: Unremarkable. Interface, Rad/Mammog In - 02/17/2019 5:33 PM [...] By: Warren Denney MD, 02/17/2019 5:19 PM 02/17/2019 [facility] U/S ABDOMEN LIMITED IMPRESSION:Normal right upper quadrant ultrasound. If the report is "FINALIZED" it indicates that the attending/staffradiologist has reviewed the images and agrees with the resident'sinterpretation. Dictated By: Isma Sosa MD, 10/12/2018 8:58 PM I have reviewed the study and agree with the findings in this report. Signed By: Birgit Lewis MD, 10/13/2018 12:31 AM EXAM: Right Upper Quadrant UltrasoundINDICATION: ruq abd painCOMPARISON: MRI abdomen 07/23/2015, CT abdomen and pelvis 01/15/2015 TECHNIQUE: Transverse and longitudinal images of the right upper abdomenwere obtained. FINDINGS: Liver: Size: 14.3 cm in the right midclavicular line, normal Appearance: Normal echogenicity, smooth contour Mass: No focal masses Gallbladder: Stones/Sludge: None Wall: 0.2 cm Appearance: No pericholecystic fluid or hydrops. Sonographic Vasquez's Sign: Negative Bile Ducts: Intrahepatic Ducts: No dilatation Extrahepatic Ducts: Common bile duct measures 0.6 cm, no dilatation Pancreas: Incompletely visualized due to overlying bowel gas, but noabnormality identified involving the visualized portions of thepancreas. Right Kidney: Size: 11.5 cm Echogenicity: Normal Parenchymal thickness: Normal Collecting system: No hydronephrosis Stones: None Cyst/Mass: None Vessels: Aorta: Visualized portions are normal Inferior Vena Cava: Visualized portions are normal Main Portal Vein: 1.1 cm, normal size with hepatopetal flow. Free Fluid: No ascites or pleural effusion Interface, Rad/Mammog In - 10/13/2018 12:36 AM CSTEXAM: Right Upper Quadrant Ultrasound INDICATION: ruq abd [...] By: Birgit Lewis MD, 10/13/2018 12:31 AM 10/13/2018 [facility] Chest 2 views DX EXAM: Chest 2 views DX DATE: 09/04/2018 7:42 PM CDT INDICATION: - Chest pain COMPARISON: 09/25/2016. IMPRESSION: Stable cardiac silhouette and mediastinum. No focal consolidation, significant pleural effusion or pneumothorax. SL: [id number] 09/04/[address] [facility] Abdomen/Pelvis IV contrast only CT Clinical Indication: Abdominal pain. Comparison: Right upper quadrant ultrasound on 09/25/[address] of the abdomen/pelvis on 07/26/2014. TECHNIQUE: Sequential trans-axial images were obtained with a multi-detector helical CT after administration of iodinated contrast. Coronal and sagittal reconstructions were obtained. 100 mL of Omnipaque contrast material was used for the exam. No oral contrast material was used for the exam. CT imaging performed at this location utilizes radiation dose optimization techniques which include one or more of the following: -Automated exposure control -Adjustment of the mA and/or kV according to patient size -Use of iterative reconstruction technique CT Radiation Dose DLP 659.30 mGy-cm FINDINGS: CHEST BASE: Scattered areas of mild subsegmental/dependent atelectasis. No focal infiltrate. No effusion or pneumothorax. Heart size normal. No pericardial effusion. LIVER: Size within normal limits. Normal contours. Enhancement pattern within normal limits. GALLBLADDER: Decompressed. No radiopaque gallstones. No pericholecystic fluid PANCREAS: Normal enhancement pattern. No surrounding inflammation. SPLEEN: Normal size. Small scattered calcified granulomas. ADRENAL GLANDS: Normal contour bilaterally. No detected lesions. KIDNEYS/COLLECTING SYSTEMS: Right kidney: Normal size and contour. No abnormal enhancement pattern. No calcified stones. Right ureter: No hydronephrosis or obstructing calcified stone. Left kidney: Normal size and contour. No abnormal enhancement pattern. No calcified stones. Left ureter: No hydronephrosis or obstructing calcified stone. Bladder: Distends normally. No detected bladder stones.. BOWEL: Limited assessment without oral contrast. Stomach: Unremarkable. Small bowel: No obstructive pattern. No suspected inflammation. Appendix: Visualized portions noninflamed. Large bowel: Within normal limits. PELVIC ORGANS: Prostate gland normal in size. Seminal vesicles within normal limits. PERITONEUM/RETROPERITONEUM: No organized fluid collection. No free air. No pathologically enlarged lymph nodes are seen in the abdomen, retroperitoneum, or pelvis. Aorta is normal in caliber without aneurysmal dilatation. MUSCULOSKELETAL: No acute fracture or dislocation. No lytic or blastic lesion. Surrounding subcutaneous tissues within normal limits. IMPRESSION: 1. No acute abnormality identified in the abdomen or pelvis. SL: [id number] 09/04/2018 [facility] Abdomen RUQ US Study: Abdomen RUQ US Clinical Indication: Right upper quadrant pain Comparison: None TECHNIQUE: Grayscale and limited color sonographic evaluation of the right upper quadrant was performed with standard technique. FINDINGS: The liver is normal in size and echotexture measuring 14.9 cm. The pancreas is normal in the visualized portions. IVC is patent. The gallbladder is normal and without stones or sludge. There is no biliary duct dilatation. Common bile duct measures 2 mm. Sonographic Vasquez's sign is negative. The right kidney is normal in size and echotexture without stones or hydronephrosis. The right kidney measures 9.5 x 4.1 x 4.6 cm. The main portal vein is patent and with hepatopedal flow. No free fluid is noted. IMPRESSION: 1. Normal right upper quadrant ultrasound. SL: BREE 09/25/2016 [facility] Chest 1view DX Study: Chest 1view DX Clinical Indication: Chest pain Comparison: Chest x-ray from 01/24/2015 FINDINGS: The cardiac silhouette is normal in size. The lungs are clear and without consolidation or congestion. No pleural effusion or pneumothorax is seen. The osseous structures are unremarkable. IMPRESSION: No acute cardiopulmonary disease. SL: BREE 09/25/2016 [facility] Consultation Notes No Data Provided for This Section Discharge Summaries No Data Provided for This Section History and Physicals No Data Provided for This Section Vital Signs Vital Sign Value Date Comments Source Systolic (mm Hg) 123 04/30/2019 [facility] Diastolic (mm Hg) 83 04/30/2019 [facility] Heart Rate 69 04/30/2019 [facility] Temperature Oral (F) 36.89 Dara 04/30/2019 [facility] Respitory Rate 19 04/30/2019 [facility] Height 162.6 cm 04/30/2019 [facility] Weight 90.13 04/30/2019 [facility] Systolic (mm Hg) 139 09/05/2018 [facility] Diastolic (mm Hg) 52 09/05/2018 [facility] Respitory Rate 20 09/05/2018 [facility] Temperature Oral (F) 98.0 F 09/05/2018 [facility] Height 170.18 cm 09/05/2018 [facility] Weight 95.455 09/05/2018 [facility] BMI Calculated 32.96 09/05/2018 [facility] Systolic (mm Hg) 132 09/05/2018 [facility] Diastolic (mm Hg) 88 09/05/2018 [facility] Respitory Rate 18 09/05/2018 [facility] Heart Rate 61 09/05/2018 [facility] Temperature Oral (F) 98.2 F 09/05/2018 [facility] Systolic (mm Hg) 134 09/25/2016 [facility] Diastolic (mm Hg) 82 09/25/2016 [facility] Respitory Rate 16 09/25/2016 [facility] Heart Rate 52 09/25/2016 [facility] Temperature Oral (F) 98.2 F 09/25/2016 [facility] Heart Rate 61 09/25/2016 [facility] Respitory Rate 18 09/25/2016 [facility] Weight 100 09/25/2016 [facility] Systolic (mm Hg) 112 09/25/2016 [facility] Diastolic (mm Hg) 73 09/25/2016 [facility] Respitory Rate 18 05/14/2015 [facility] Temperature Oral (F) 98.2 F 05/14/2015 [facility] Systolic (mm Hg) 123 05/14/2015 [facility] Diastolic (mm Hg) 77 05/14/2015 [facility] Systolic (mm Hg) 123 05/14/2015 [facility] Diastolic (mm Hg) 90 05/14/2015 [facility] Respitory Rate 17 05/13/2015 [facility] Systolic (mm Hg) 132 05/13/2015 [facility] Diastolic (mm Hg) 76 05/13/2015 [facility] Heart Rate 60 05/13/2015 [facility] Respitory Rate 18 05/13/2015 [facility] Heart Rate 60 05/13/2015 [facility] Heart Rate 58 05/13/2015 [facility] Temperature Oral (F) 97.4 F 05/13/2015 [facility] Temperature Oral (F) 98 F 05/13/2015 [facility] BMI Calculated 30.02 05/13/2015 [facility] Weight 81.818 05/13/2015 [facility] Height 165.1 cm 05/13/2015 [facility] Systolic (mm Hg) 126 01/26/2015 [facility] Diastolic (mm Hg) 76 01/26/2015 [facility] Heart Rate 76 01/26/2015 [facility] Respitory Rate 20 01/26/2015 [facility] Temperature Oral (F) 98.7 F 01/26/2015 [facility] Temperature Oral (F) 97.7 F 01/26/2015 [facility] Heart Rate 82 01/26/2015 [facility] Systolic (mm Hg) 124 01/26/2015 [facility] Diastolic (mm Hg) 78 01/26/2015 [facility] Respitory Rate 20 01/26/2015 [facility] Height 167.64 cm 01/26/2015 [facility] Weight 80.909 01/26/2015 [facility] BMI Calculated 28.79 01/26/2015 [facility] Systolic (mm Hg) 116 01/25/2015 [facility] Diastolic (mm Hg) 73 01/25/2015 [facility] Respitory Rate 18 01/25/2015 [facility] Respitory Rate 18 01/25/2015 [facility] Systolic (mm Hg) 126 01/25/2015 [facility] Diastolic (mm Hg) 75 01/25/2015 [facility] Temperature Oral (F) 98.4 F 01/25/2015 [facility] Respitory Rate 16 01/25/2015 [facility] Systolic (mm Hg) 91 01/25/2015 [facility] Diastolic (mm Hg) 52 01/25/2015 [facility] Temperature Oral (F) 98.3 F 01/25/2015 [facility] Heart Rate 84 01/25/2015 [facility] BMI Calculated 29.24 01/25/2015 [facility] Height 162.56 cm 01/25/2015 [facility] Weight 77.273 01/25/2015 [facility] Diastolic (mm Hg) 79 07/26/2014 [facility] Heart Rate 71 07/26/2014 [facility] Temperature Oral (F) 98.6 F 07/26/2014 [facility] Systolic (mm Hg) 125 07/26/2014 [facility] Respitory Rate 16 07/26/2014 [facility] Temperature Oral (F) 98.5 F 07/26/2014 [facility] Heart Rate 78 07/26/2014 [facility] Respitory Rate 20 07/26/2014 [facility] Systolic (mm Hg) 139 07/26/2014 [facility] Diastolic (mm Hg) 89 07/26/2014 [facility] Weight 81.818 07/26/2014 [facility] BMI Calculated 30.02 07/26/2014 [facility] Height 165.1 cm 07/26/2014 [facility] Encounters Location Location Details Encounter Type Encounter Number Reason For Visit Attending Provider ADM Date DC Date Status Source [facility] [id number] Mekhi Kim 07/26/2014 07/26/2014 [facility] [id number] Fareed Rodriguez 01/25/2015 01/25/2015 [facility] [id number] Yuri Vasquez 01/26/2015 01/26/2015 [facility] [id number] Evelyne Chan 05/13/2015 05/14/2015 [facility] Emergency [id number] Sushil Santiago 09/25/2016 09/25/2016 [facility] Departed Emergency Room [id number] KELSEY PRADHAN MD 06/02/2018 06/02/2018 [facility] Emergency [id number] Brad Pascual 09/05/2018 09/05/2018 [facility] Emergency Center [facility] Emergency [id number] Yancy Saul MD 10/12/2018 10/13/2018 [facility] Same Day Same Day [id number] Nova Murphy MD 10/31/2018 11/01/2018 [facility] ASK YOUR NURSE PROGRAM Nurse Triage [id number] Jelly Soto RN 11/20/2018 [facility] Same Day Same Day [id number] Koki Renteria MD 11/21/2018 11/21/2018 [facility] Office Visit [id number] Jordan Dasilva MD 11/28/2018 11/28/2018 [facility] Office Visit [id number] Jordan Dasilva MD 12/23/2018 12/23/2018 [facility] Departed Emergency Room [id number] HUNTER REDMAN MD 01/27/2019 01/27/2019 [facility] Emergency Center ([id number]) [facility] [id number] Dilip Novoa MD 02/17/2019 02/17/2019 [facility] Refill [id number] Jordan Dasilva MD 03/05/2019 [facility] Ophthalmology/Optometry [facility] Office Visit [id number] Jordan Dasilva MD 03/05/2019 03/05/2019 [facility] Office Visit [id number] Jordan Dasilva MD 03/19/2019 03/19/2019 [facility] G[facility]ology [facility] Office Visit [id number] Joel Call MD 04/30/2019 04/30/2019 [facility] Procedures Procedure Code Date Perfomer Comments Source XRAY CHEST 2 VIEWS 22780 02/18/2019 [facility] 12 LEAD EKG [id number] 02/17/2019 Fabiola [facility] N EMG; THORACIC MUSCLES NOT T1/T12 70664 11/29/2018 [facility] NEEDLE EMG, 2 EXTREMITIES 48432 11/29/2018 [facility] POC URINE DIPSTICK, WITHOUT MICRO 62037 11/21/2018 Telufusi [facility] U/S ABDOMEN LIMITED 25926 10/13/2018 Saul [facility] BMP POC 35796 10/12/2018 Unknown [facility] CBC/DIFF 53861 [facility] LIVER [facility] [id number] 10/12/2018 [facility] LIPASE 69897 10/12/2018 [facility] URINALYSIS [id number] 10/12/2018 [facility] HIV-1/HIV-2 ROUTINE SCREENING [id number] 10/12/2018 [facility] Assessment and Plan No Data Provided for This Section Plan of Care Plan of Care Date Source Upcoming EncountersDateTypeSpecialtyCare TeamDescription 10/01/2019 Office Visit Gastroenterology 4 month f/u 07/21/2019 [facility] Discharge Date 01/27/19 3:05pm Disposition HOME, SELF-CARE Condition at Discharge Stable Instructions/Education Provided Abdominal Pain - Adult Forms Provided Work/School Excuse Prescriptions See Medication Section Additional Instructions/Education FOLLOW UP WITH PRIMARY CARE DOCTOR TAKE MEDICATIONS DIRECTED DRINK PLENTY OF FLUIDS 01/27/2019 [facility] Social History Social History Date Source Tobacco UseTypesPacks/DayYears UsedDate Former Smoker Cigarettes 0.3 15 Quit: 12/29/2014 Smokeless Tobacco: Former User Tobacco Cessation: Counseling Given: Yes Alcohol UseDrinks/Weekoz/WeekComments No quit drinking 2015; 3-4 drinks daily Sex Assigned at BirthDate Recorded Not on file Job Start DateOccupationIndustry Not on file Not on file Not on file Travel HistoryTravel StartTravel End No recent travel history available. 04/30/2019 [facility] Smoking Status Start Date Stop Date Never Smoker 01/27/2019 [facility] Social History TypeResponse Smoking Status Never smoker; Exposure to Tobacco Smoke None; Cigarette Smoking Last 365 Days No; Reg Smoking Cessation Counseling No entered on: 09/04/18 09/05/2018 [facility] Social History TypeResponse Smoking Status Former smoker; Exposure to Tobacco Smoke None; Cigarette Smoking Last 365 Days Yes; Reg Smoking Cessation Counseling Yes1 1quit 9 months ago 05/13/2015 [facility] Social History TypeResponse Smoking Status Never smoker; Exposure to Tobacco Smoke None; Cigarette Smoking Last 365 Days No; Reg Smoking Cessation Counseling No 01/26/2015 [facility] Family History Value Date Source Medical HistoryRelationNameComments Arthritis Maternal Grandmother Heart Maternal Grandmother Hypertension Maternal Grandmother RelationNameStatusComments Daughter Alive x2 Father Alive Maternal Grandfather Maternal Grandmother Alive Mother Alive Paternal Grandfather Alive Paternal Grandmother Alive Son Alive x4 07/21/2019 [facility] Advance Directives Order Name Results Value Date Source Advance Directives Advance Directives Directive Response Recorded Date/Time Does the patient have an advance directive? No 06/02/18 12:58pm If yes, is advance directive on file with [facility]? No 06/02/18 12:58pm If not on file with [facility] will patient provide a copy? No 06/02/18 12:58pm Do you have a Directive to Physician? No 01/27/19 10:54am Do you have a Medical Power of Operations Officer Afloat? No 01/27/19 10:54am Do you have an out of hospital Do Not Resuscitate Order? No 01/27/19 10:54am Do you have any special needs we should be aware of? No 01/27/19 10:54am Do you have a support person here with you today? No 01/27/19 10:54am Did patient receive Notice of Privacy Practices? Yes 01/27/19 10:54am Did patient receive patient rights and responsibilities? Yes 01/27/19 10:54am 01/27/2019 [facility] Functional Status No Data Provided for This Section
--- OUTSIDE RECORDS SUMMARY | 2019-08-07 07:17 | XMS REPORT | Clinical Summary ---
Author Author [facility] Organization [facility] Address Unknown Phone Unavailable Care Team Providers Care Auditing Coder Name Role Phone Jordan Dasilva MD PCP [...] Abdominal pain, epigastric 12/04/2014 Pancreatitis 06/12/2014 Overview: [facility] abdominal pain Encounters Care Team Description [...] Jelly Soto RN 11/20/2018 Nurse Triage Nova Muprhy MD Patient left without being seen (Primary Dx) 10/31/2018 [facility] Yancy Saul MD RUQ abdominal pain (Primary Dx); Epigastric pain 10/12/2018 Emergency Emergency Medicine after 07/20/2018 Immunizations Name Administration Dates Next Due Influenza [...] Routine 11/28/2018 Osteoarthritis of lumbar 2:39 PM MONEY ORDER CLERK spine, unspecified spinal osteoarthritis complication status N EMG; THORACIC MUSCLES Routine 11/28/2018 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 MONEY ORDER CLERK thoracic spine, unspecified spinal osteoarthritis complication status POC URINE DIPSTICK, Routine 11/21/2018 Side pain WITHOUT MICRO U/S ABDOMEN LIMITED STAT 10/12/2018 RUQ abdominal pain 8:36 PM MONEY ORDER CLERK BMP POC Routine 10/12/2018 9:19 AM MONEY ORDER CLERK HIV-1/HIV-2 ROUTINE STAT 10/12/2018 SCREENING 9:08 AM MONEY ORDER CLERK URINALYSIS STAT 10/12/2018 9:08 AM MONEY ORDER CLERK LIPASE STAT 10/12/2018 9:08 AM MONEY ORDER CLERK LIVER PROFILE STAT 10/12/2018 9:08 AM MONEY ORDER CLERK CBC/DIFF STAT 10/12/2018 9:08 AM MONEY ORDER CLERK after 07/20/2018 Results * XRAY CHEST 2 VIEWS (02/17/2019 5:11 PM CDT) Specimen Impressions Performed At [facility]: [facility] No acute intrathoracic abnormality. Signed By: Warren Denney MD, 02/17/2019 5:19 PM Narrative Performed At EXAM: CHEST X-RAY 2 VIEWS (PA AND LATERAL) [facility] DATE: 02/17/2019 5:13 PM CLINICAL INDICATION: chest [...] MD, 02/17/2019 5:19 PM Performing Organization Address City[facility] Phone Number 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 * POC URINE DIPSTICK, WITHOUT MICRO (11/21/2018) Color POC dark yellow - - - Clarity POC clr - - - Spec [place] <=1.005 1.005 - 1.030 POC pH POC [...] * U/S ABDOMEN LIMITED (10/12/2018 8:36 PM MONEY ORDER CLERK) Specimen Impressions Performed At IMPRESSION: [facility] Normal right upper quadrant ultrasound. If the report is "FINALIZED" it indicates that the attending/staff radiologist has reviewed the images and agrees with the resident's interpretation. Dictated By: Isma Sosa MD, 10/12/2018 8:58 PM I have reviewed the study and agree with the findings in this report. Signed By: Birgit Lewis MD, 10/13/2018 12:31 AM Narrative Performed At EXAM: Right Upper Quadrant Ultrasound [facility] INDICATION: ruq abd pain COMPARISON: MRI abdomen [...] Interface, Rad/Mammog In - 10/13/2018 12:36 AM MONEY ORDER CLERK EXAM: Right Upper Quadrant Ultrasound INDICATION: ruq [...] SMS * BMP POC (10/12/2018 9:19 AM MONEY ORDER CLERK) CO2 POC 26 21 - 32 mmol/L [...] MAIN-STATION Afr-Am 1 Specimen Performing Organization Address [facility] Phone Number [facility] BT MAIN-STATION 1 * HIV-1/HIV-2 ROUTINE SCREENING (10/12/2018 9:08 AM MONEY ORDER CLERK) HIV-1/HIV-2 Negative NEG BT OUTPATIENT DRAW 2 Specimen Performing Organization Address [facility] Phone Number [facility] BT OUTPATIENT DRAW 2 * UA CHEMISTRIES (10/12/2018 9:08 AM MONEY ORDER CLERK) Color Yellow BT MAIN-STATION 3 Clarity Clear BT MAIN-STATION 3 Specific 1.026 1.001 - 1.035 BT MAIN-STATION [place] 3 pH 7.0 5 - 8 BT [...] MAIN-STATION 3 Specimen Urine Performing Organization Address [facility] Phone Number MISYS BT MAIN-STATION 3 * LIVER PROFILE (10/12/2018 9:08 AM MONEY ORDER CLERK) Protein, Total, 6.9 6.0 - 8.3 g/dL [...] MAIN-STATION 1 * LIPASE (10/12/2018 9:08 AM MONEY ORDER CLERK) Lipase 11 11 - 82 U/L BT MAIN-STATION 1 Specimen Blood Performing Organization Address [facility] Phone Number [facility] BT MAIN-STATION 1 * CBC/DIFF (10/12/2018 9:08 AM MONEY ORDER CLERK) WBC 4.4 (L) 4.5 - 12.0 K/uL [...] (L) 0.30 - 0.82 K/uL BT MAIN-STATION [place]) 2 Eos (Absolute) 0.04 0.04 - 0.54 K/uL BT MAIN-STATION 2 Baso (Absolute) 0.02 0.01 - 0.08 K/uL BT MAIN-STATION 2 Immature Grans 0.00 0.00 - 0.03 K/uL BT MAIN-STATION (Abs) 2 Specimen Blood Performing Organization Address City/State/Zipcode Phone Number MISYS BT MAIN-STATION 2 after 07/20/2018 Insurance Type Payer Benefit Subscriber ID Effective Phone Address Plan / Dates Group HD PLAN FINANCIAL xxxxxx 2018- [phone] [id number] [place] [address] [employer] [place] xxxxxx 2018 [address] [employer] FAMILY [phone] PLANNING [address] [place] [address] [place] [phone]
[2019-08-07] MEDS ORDERED: ONDANSETRON HCL INJ 2MG/ML 2ML 2 MG/ML VIAL IV STA (07:26)
[2019-08-07] MEDS ORDERED: SODIUM CHLORIDE 0.9% 1000ML 1,000 ML IV STA (07:27)
[2019-08-07] MEDS ORDERED: ONDANSETRON HCL INJ 2MG/ML 2ML 2 MG/ML VIAL ONE (07:53)
[2019-08-07] MEDS ORDERED: SODIUM CHLORIDE 0.9% 1000ML 1,000 ML ONE (07:53)
--- NOTE | 2019-08-07 08:52 | Diagnostic Imaging Report ---
EXAMINATION: CXR 1 VEW - HOPD INDICATION: Chest pain COMPARISON: None FINDINGS: LINES/TUBES:None LUNGS:The lungs are well-inflated. No focal consolidation or pulmonary edema. PLEURA:No pleural effusion or pneumothorax. MEDIASTINUM:The cardiomediastinal silhouette appears normal in size and shape. BONES/SOFT TISSUES:No acute osseous injury. ABDOMEN:No free air under the diaphragm. IMPRESSION: No focal pneumonia or pulmonary edema. Signed by: Josiah Mcnamara MD on 08/07/2019 8:49 AM
[2019-08-07] MEDS ORDERED: KETOROLAC TROMETHAMINE 30 MG/ML VIAL IV STA (09:10)
[2019-08-07] MEDS ORDERED: DONNATAL/LIDOCAINE/MAALOX 30 ML SUSP PO ONE (09:15)
[2019-08-07] MEDS ORDERED: BELLADONNA ALK/PHENOBARBITAL 5 ML UDC ONE (09:22)
[2019-08-07] MEDS ORDERED: LIDOCAINE VISC 2% SOLN 15 ML UDC ONE (09:22)
[2019-08-07] MEDS ORDERED: KETOROLAC TROMETHAMINE 30 MG/ML VIAL ONE (09:23)
[2019-08-07] MEDS ORDERED: IOPAMIDOL 370 MG/ML 200 ML INFUS..BTL INJ ONE (09:32)
[2019-08-07] MEDS ORDERED: SODIUM CHLORIDE 0.9% 100 ML ONE (09:33)
--- NOTE | 2019-08-07 10:24 | Diagnostic Imaging Report ---
EXAM: CT Chest WITH contrast- Pulmonary Embolism Protocol INDICATION: Chest pain COMPARISON: Chest radiograph of earlier the same day TECHNIQUE: Chest was scanned utilizing a multidetector helical scanner from the lung apex through the level of the diaphragm after administration of IV contrast. Thin section reconstructions were obtained with special concentration on the pulmonary arteries. Coronal and sagittal reformations were obtained. Pulmonary embolism protocol was performed. IV CONTRAST: 100 cc of Isovue 370 RADIATION DOSE: Total DLP: 484.4 mGy*cm Dose modulation, iterative reconstruction, and/or weight based adjustment of the mA/kV was utilized to reduce the radiation dose to as low as reasonably achievable. COMPLICATIONS: None FINDINGS: LINES/ TUBES: None. PULMONARY ARTERIES: No filling defect is identified within the pulmonary arteries to the segmental level. The subsegmental pulmonary arteries are not well opacified. Main pulmonary artery measures 2.5 in diameter. LUNGS AND AIRWAYS: The central airways are patent. Mild bibasilar dependent subsegmental atelectasis. No focal consolidation. PLEURA: The pleural spaces are clear. HEART AND MEDIASTINUM: The partially visualized thyroid gland appears unremarkable. No supraclavicular, axillary, mediastinal, or hilar lymphadenopathy. The heart is at the upper limits of normal in size. No pericardial effusion. No evidence of right heart strain. UPPER ABDOMEN: Limited images of the upper abdomen demonstrate no focal abnormality of the partially visualized liver, gallbladder, spleen, pancreas, adrenals, or upper kidneys. BONES: No acute osseous injury. No suspicious lytic or blastic lesions. SOFT TISSUES: Unremarkable. IMPRESSION: No pulmonary embolism. Signed by: Josiah Mcnamara MD on 08/07/2019 10:21 AM
--- NOTE | 2019-08-07 10:41 | Diagnostic Imaging Report ---
CT [facility] HISTORY: Headache COMPARISON: None. TECHNIQUE: Noncontrast axial scans were obtained from skull base to the vertex. Coronal and sagittal reconstructions obtained from the axial data. One or more of the following dose reduction techniques were used: Automated exposure control, adjustment of the mA and/or kV according to patient size, and/or utilization of iterative reconstruction technique. DISCUSSION: Scalp/Skull: Unremarkable. Brain sulci: Appropriate for patient's age. Ventricles: Normal in size and configuration. No hydrocephalus. Extra-axial spaces: No masses or fluid collections. Parenchyma: No abnormal densities. No mass, hemorrhage, or large vascular territory acute infarct. Dural sinuses: No abnormal densities. Sellar/Suprasellar region: Intact. Skull base: Intact. Incidental findings: None. IMPRESSION: No intracranial abnormalities. Signed by: Dr. Bereket Stout M.D. on 08/07/2019 10:38 AM
[2019-08-07 11:17] VITALS: BP 119/71
[2019-08-07] MEDS ORDERED: DONNATAL/LIDOCAINE/MAALOX 30 ML SUSP PO SCH ×2 (15:00)
== END 2019-08-07 11:27 | disposition home or self-care (01) ==
LOC: FSED 07:10
DX: R07.89 Other chest pain (principal); R11.0 Nausea; R51 Headache
CPT/HCPCS: 70450; 71045; 71260; 80053; 82553; 83518; 84484; 85025; 86308; 87400; 93005; 96374; 96375; 99284; J1885; J2405; J7030; J7050; Q9967